=== PATIENT | male | born 1970 | race Caucasian/White ===

== ENCOUNTER → 2018-04-22 | Outpatient (CLI) | payer BC ==
--- NOTE | 2018-04-22 10:30 | NM ---
EXAMINATION TYPE: NM stress cardiolite complete DATE OF EXAM: 04/22/2018 COMPARISON: NONE HISTORY: Chest pain TECHNIQUE: After the intravenous administration of 10.38 mCi Tc 99m Sestamibi - Rest images obtained 60 minutes post injection. The patient exercised using a AIDEN protocol and 1 minute prior to peak exercise was injected with 25.8 mCi Tc 99m Sestamibi - Stress images obtained 15 minutes post inject ion. FINDINGS: Targeted heart rate was achieved during performance of the study. Review of stress and rest SPECT bernardo ges demonstrates decreased radio pharmaceutical along the inferolateral left ventricle on stress as c ompared to rest images. Gated analysis shows normal wall motion with an estimated left ventricular ej ection fraction of 55 %. IMPRESSION: Stress-induced left ventricular myocardial ischemia. A Yellow level critical message alert has been initiated for Rigoberto Sheppard MD via the [employer] Critical Results System on 04/22/2018 10:28 AM. This message alert has been sent to Rigoberto Sheppard MD via the preferences provided by the clinician for the receipt of Radiology Critical Findings. Message ID [id number].
--- NOTE | 2018-04-22 13:28 | EST ---
EXERCISE STRESS DATE OF SERVICE: 04/22/2018 AGE: 47 SEX: Male HT: 6'0" WT: 240 pounds PROTOCOL: Cardiolite Dustin STAGE: III DURATION OF EXERCISE: 9 minutes HEART RATE REST: 79 BLOOD PRESSURE REST: 100/68 MAXIMUM HEART RATE ACHIEVED: 152 MAXIMUM BLOOD PRESSURE: 138/70 85% MPHR: 149 100% MPHR: 175 METS: 10.3 INDICATIONS: Chest pain. CLINICAL INFORMATION: A stress Cardiolite study was performed. Patient was exercised for a total period of 9 minutes. Peak heart rate of 152 was achieved. Maximum blood pressure of 138/70 mmHg was noted. Resting EKG shows normal sinus rhythm with normal TN interval and QRS duration and normal ST-T waves. No ST- segment depression suggestive of ischemia was noted. The patient did not complain of any chest pain during the test. FINAL IMPRESSION: This exercise EKG is not suggestive of ischemia. Patient's exercise tolerance is normal. The results of the nuclear study will follow. VELIA / AISHAN: [id number] /
== END | disposition home or self-care (01) ==
LOC: RADNMMAIN 07:57
PROVIDERS: ATTEND Internal Medicine
DX: I25.9 Chronic ischemic heart disease, unspecified (principal)
CPT/HCPCS: 93017; 78452; A9500

== ENCOUNTER 2018-04-23 23:52 | Inpatient (IN) | payer BC ==
[2018-04-24] MEDS ORDERED: SODIUM CHLORIDE 0.9% 1,000 ML IV STA (00:07)
--- NOTE | 2018-04-24 00:11 | ED ---
Chest Pain HPI - General Chief Complaint: Chest Pain Stated Complaint: Chest,Neck Pain Time Seen by Provider: 04/24/18 00:07 Source: patient Mode of arrival: ambulatory Limitations: no limitations - History of Present Illness Initial Comments: Abhishek Lindsey is an obese 47-year-old male who presents the emergency department today for evaluation of left-sided chest pain with pain radiating to his left neck and left shoulder. Patient reports that last week he had an episode of severe left-sided chest pain with radiation to his jaw and shoulder, he did not seek medical care at that time. He did follow up with his primary care physician Dr. Sheppard who ordered an outpatient stress test. Patient did undergo the stress test on April 22 and was noted to have failed the stress test and there is noted to be signs of exercise-induced ischemia. Patient was advised that he will need follow-up with cardiology. Patient reports that on the evening of April was laying in bed watching television when he again developed pressure-like left-sided chest pain with radiation into his jaw and shoulder. Pain was not associated with diaphoresis lightheadedness or shortness of breath. Patient took full dose aspirin and came to the ER for reevaluation. Patient has no personal history of cardiac disease, hypertension, hyperlipidemia or diabetes. He isn't every day smoker. He does have a significant family history of early cardiac disease including his mother having a IL at the age of 42 and his father developing heart failure later in life. - Related Data Allergies Allergy/AdvReac Type Severity Reaction Status Date / Time No Known Allergies Allergy Verified 04/23/18 23:57 Review of Systems ROS Statement: Those systems with pertinent positive or pertinent negative responses have been documented in the HPI. ROS Other: All systems not noted in ROS Statement are negative. EKG Findings - EKG Comments: EKG Findings:: EKG obtained at 12:10 AM, rate is 86 rhythm is sinus there is a normal axis, there are normal intervals, AK 158, QRS 92, QTc is 409. There are no acute ST elevations or depressions is no evidence of acute ischemia or infarction. V1 does have an RSR' pattern which is unchanged from EKG obtained during stress echo on 04/22 Past Medical History Past Medical History: Chest Pain / Angina History of Any Multi-Drug Resistant Organisms: None Reported Past Surgical History: Orthopedic Surgery, Tonsillectomy Additional Past Surgical History / Comment(s): GALLBLADDER Past Psychological History: No Psychological Hx Reported Smoking Status: Current every day smoker Past Alcohol Use History: None Reported Past Drug Use History: None Reported General Exam - General Exam Comments Initial Comments: Physical Exam GENERAL: Patient is well-developed and well-nourished. Patient is nontoxic and well-hydrated and is in no distress. HENT: Normocephalic, Atraumatic. EYES: PERRL, EOMI PULMONARY: Unlabored respirations. No audible rales rhonchi or wheezing was noted. CARDIOVASCULAR: There is a regular rate and rhythm without any murmurs gallops or rubs. ABDOMEN: Soft and nontender with normal bowel sounds. SKIN: Skin is clear with no lesions or rashes and otherwise unremarkable. : Deferred NEUROLOGIC: Patient is alert and oriented x3. Moving all extremities spontaneously MUSCULOSKELETAL: Normal extremities with adequate strength and full range of motion. No lower extremity swelling or edema. No calf tenderness. PSYCHIATRIC: Normal psychiatric evaluation. Limitations: no limitations Limitations: no limitations Course Vital Signs 04/23/18 04/24/18 23:54 01:00 Temperature 99.2 F 98.0 F Pulse Rate 96 75 Respiratory 16 16 Rate Blood Pressure 122/58 103/65 O2 Sat by Pulse 96 98 Oximetry Chest Pain [facility] Patient was seen and evaluated, vital signs were reviewed, nursing notes reviewed, previous medical record and stress test from April 22 were reviewed Patient failed a stress test is now presenting with left-sided chest pain with radiation of the jaw and shoulder. This is very concerning for ischemic chest pain. Cardiac workup was ordered. Low-dose heparin was ordered for very high risk chest pain. EKG reviewed, no ischemic changes Labs with no significant abnormalities, d-dimer and BNP were negative Chest x-ray no acute abnormalities I do feel patient is very high risk for cardiac etiology of chest pain and does warrant further evaluation by cardiology. Admission orders were placed, consult to cardiology, nothing by mouth diet and echocardiogram ordered. Disposition Clinical Impression: Chest pain Disposition: ADMITTED IP TO THIS HOSP Condition: Stable Referrals: Rigoberto Sheppard MD [Primary Care Provider] - 1-2 days
[2018-04-24] MEDS ORDERED: HEPARIN SOD,PORK IN 0.45% NACL 25,000 UNIT in 0.45% NACL 1 250ML.BAG IV SCH (00:15)
[2018-04-24] MEDS ORDERED: HEPARIN SODIUM,PORCINE 5,000 UNIT/ML 1 ML VIAL IV ONE (00:15)
[2018-04-24] MEDS ORDERED: HEPARIN SODIUM,PORCINE 5,000 UNIT/ML 1 ML VIAL IV PRN (00:15)
[2018-04-24 00:42] LABS: Basophils # (A) 0.1 k/uL (0-0.2); Basophils % (A) 1 %; Eosinophils # (A) 0.4 k/uL (0-0.7); Eosinophils % (A) 6 %; HCT 44.2 % (39.0-53.0); HGB 14.3 gm/dL (13.0-17.5); Lymphocytes # (A) 2.1 k/uL (1.0-4.8); Lymphocytes % (A) 31 %; MCH 29.5 pg (25.0-35.0); MCHC 32.3 g/dL (31.0-37.0); MCV 91.1 fL (80.0-100.0); Mean Platelet Volume 6.9; Monocytes # (A) 0.5 k/uL (0-1.0); Monocytes % (A) 7 %; Neutrophils # (A) 3.5 k/uL (1.3-7.7); Neutrophils % (A) 51 %; Platelet Count 229 k/uL (150-450); RBC 4.85 m/uL (4.30-5.90); RDW 12.8 % (11.5-15.5); WBC 6.8 k/uL (3.8-10.6)
[2018-04-24 00:54] LABS: ALT 38 U/L (21-72); AST 37 U/L (17-59); Albumin 3.9 g/dL (3.5-5.0); Alkaline Phosphatase 50 U/L (38-126); Anion Gap 5 mmol/L; Blood Urea Nitrogen 17 mg/dL (9-20); Calcium 9.1 mg/dL (8.4-10.2); Carbon Dioxide 26 mmol/L (22-30); Chloride 109 mmol/L (98-107); Glucose 106 mg/dL (74-99); INR 0.9 (<1.2); Magnesium 2.1 mg/dL (1.6-2.3); Partial Thromboplastin Time 24.2 sec (22.0-30.0); Potassium 4.3 mmol/L (3.5-5.1); Prothrombin Time 10.1 sec (9.0-12.0); Sodium 140 mmol/L (137-145); Total Bilirubin 0.6 mg/dL (0.2-1.3); Total Protein 6.5 g/dL (6.3-8.2)
[2018-04-24] MEDS: ASPIRIN 81 MG PO STA ×2 (00:59→08:56)
[2018-04-24 01:09] LABS: Creatine Kinase 129 U/L (55-170)
--- NOTE | 2018-04-24 01:18 | XR ---
EXAM: XR Chest, 2 Views CLINICAL HISTORY: ITS.REASON XR Reason: Chest Pain TECHNIQUE: Frontal and lateral views of the chest. COMPARISON: No relevant prior studies available. FINDINGS: Lungs: Unremarkable. The lungs are clear. Pleural space: Unremarkable. No pneumothorax. Heart: Unremarkable. No cardiomegaly. Mediastinum: Unremarkable. Bones/joints: Unremarkable. IMPRESSION: Normal chest x-rays.
[2018-04-24 01:22] LABS: Creatine Kinase MB <0.2 ng/mL (0.0-2.4); Troponin I <0.012 ng/mL (0.000-0.034)
[2018-04-24] MEDS ORDERED: MORPHINE SULFATE 4 MG/ML SYRINGE IV PRN (01:25)
[2018-04-24] MEDS: NITROGLYCERIN OINT 1 INCH/GM PACKET TOPICAL SCH ×4 (03:42→22:53)
[2018-04-24] MEDS ORDERED: ALPRAZolam 0.5 MG TAB PO PRN (07:48)
[2018-04-24] MEDS ORDERED: SODIUM CHLORIDE 0.9% 1,000 ML in EMPTY BAG 1 BAG IV ONE (07:48)
[2018-04-24] MEDS ORDERED: NITROGLYCERIN SL TABS 0.4 MG TAB SUBLINGUAL PRN ×2 (07:48→12:50)
[2018-04-24] MEDS ORDERED: ATORVASTATIN 80 MG TAB PO STA (07:48)
[2018-04-24] MEDS ORDERED: ALPRAZolam 0.25 MG TAB PO PRN (07:48)
[2018-04-24 08:32] LABS: Creatine Kinase 108 U/L (55-170)
[2018-04-24 08:44] LABS: Creatine Kinase MB <0.2 ng/mL (0.0-2.4); Troponin I <0.012 ng/mL (0.000-0.034)
[2018-04-24 09:13] LABS: ALT 35 U/L (21-72); AST 38 U/L (17-59); Albumin 3.5 g/dL (3.5-5.0); Alkaline Phosphatase 62 U/L (38-126); Anion Gap 7 mmol/L; Blood Urea Nitrogen 15 mg/dL (9-20); Calcium 8.8 mg/dL (8.4-10.2); Carbon Dioxide 19 mmol/L (22-30); Chloride 115 mmol/L (98-107); Glucose 89 mg/dL (74-99); Potassium 4.5 mmol/L (3.5-5.1); Sodium 141 mmol/L (137-145); Total Bilirubin 0.7 mg/dL (0.2-1.3)
--- NOTE | 2018-04-24 09:23 | P.HPIM ---
History of Present Illness H&P Date: 04/24/18 This is a 47-year-old male who presented to the hospital with complaints of chest pain. Patient has been experiencing intermittent chest pain the past couple months. Patient presented to his PCP. At that time a stress test was completed on April 22 in which she failed. Patient was set up to follow-up cardiology services. Patient stated that he started to experience pain that radiated to his left neck and left shoulder. Patient is a current every day smoker. Patient also states his mother had open heart surgery at 42. Patient also reports father had significant cardiac history. Patient does have a past medical history for nicotine dependence and cholectomy. Chest x-ray completed in ER showing normal chest x-ray. Cardiology services are consulted. Planning for heart cath today. 2-D echo has been ordered. At this time patient denies any chest pain or shortness of breath. Patient denies nausea vomiting or diarrhea. Patient denies any urinary burning or frequency. Review of Systems Please refer to HPI otherwise unremarkable. Past Medical History Past Medical History: Chest Pain / Angina History of Any Multi-Drug Resistant Organisms: None Reported Past Surgical History: Orthopedic Surgery, Tonsillectomy Additional Past Surgical History / Comment(s): GALLBLADDER, broke his R foot Smoking Status: Current every day smoker Medications and Allergies Allergies Allergy/AdvReac Type Severity Reaction Status Date / Time No Known Allergies Allergy Verified 04/23/18 23:57 Physical Exam Vitals: Vital Signs Temp Pulse Pulse Pulse Resp BP BP 04/24/18 07:21 97.9 F 74 18 97/59 04/24/18 03:54 98.4 F 76 15 101/66 04/24/18 03:31 16 04/24/18 01:00 98.0 F 75 16 103/65 04/23/18 23:54 99.2 F 96 16 122/58 Pulse Ox 04/24/18 07:21 95 04/24/18 03:54 98 04/24/18 03:31 04/24/18 01:00 98 04/23/18 23:54 96 Intake and Output 04/23/18 04/24/18 04/24/18 22:59 06:59 14:59 Other: # Voids 1 Weight 109.769 kg Head normocephalic Neck supple Lungs clear to auscultation bilaterally no wheezing or crackles Heart regular rate and rhythm S1-S2, no rub or gallop Abdomen is soft nontender nondistended positive bowel sounds no hepatosplenomegaly Extremities no edema Neuro alert and orientated to 3 Results CBC & Chem 7: 04/24/18 00:30 04/24/18 00:30 Labs: Abnormal Lab Results - Last 24 Hours (Table) 04/24/18 04/24/18 Range/Units 00:30 06:59 APTT 32.4 H (22.0-30.0) sec Chloride 109 H (98-107) mmol/L Glucose 106 H (74-99) mg/dL Thrombosis Risk Factor Assmnt - Choose All That Apply Each Factor Represents 1 point: Age 41-60 years, Obesity (BMI >25) Thrombosis Risk Factor Assessment Total Risk Factor Score: 2 Thrombosis Risk Factor Assessment Level: Low Risk Assessment and Plan Assessment: 1. Chest pain. Troponin negative. EKG showing normal sinus rhythm. Patient recently underwent stress test on April 22 in which he failed. Cardiology consult placed. Planning heart cath today. 2-D echo ordered 2. Nicotine dependence. Nicotine patch has been ordered. Patient educated greater than 3 minutes on smoking cessation. 3. History of cholecystectomy Time with Patient: Greater than 30 (Greater than 60% of the total time spent in counseling and coordination of care. I performed an examination of the patient and discussed their management with the Nurse Practitioner. I have reviewed the Nurse Practitioner's notes and agree with the documented findings and plan of care)
[2018-04-24 09:30] LABS: Cholesterol 224 mg/dL (<200); HDL Cholesterol 41 mg/dL (40-60); LDL Cholesterol,Calculated 142 mg/dL (0-99); Triglycerides 207 mg/dL (<150)
[2018-04-24] MEDS ORDERED: LIDOCAINE 1% INJ 10MG/ML (20 ML MDV) ONE (10:18)
[2018-04-24] MEDS ORDERED: IV FLUID CONTINUATION 1,000 ML IV ONE (10:28)
--- NOTE | 2018-04-24 10:41 | P.CRDCN ---
History of Present Illness History of present illness: This is a pleasant 47-year-old male past medical history significant for chronic nicotine dependence. He denies history of hypertension, dyslipidemia, coronary artery disease or diabetes mellitus. He does have significant family history for premature coronary artery disease with his mother and father. We have been asked to see him in consultation for symptoms of chest discomfort. He states this first started approximately one month ago where he felt a pain in the left neck, jaw and left shoulder described as a squeezing sensation. This occurred while he was lying in bed in and lasted for approximately 20 minutes. It went away on its own. He saw his primary care physician subsequently thereafter and had a stress test ordered which was performed April 22 as an outpatient. Stress test revealed inferior lateral wall reversibility. Again last night while lying in bed he felt similar type pain in the left neck, left jaw left ear and this time radiated down the left arm and mildly into the left precordial region. This persisted for approximately 20-30 minutes and subsided before he arrived to the hospital. EKG on arrival reveals sinus mechanism. Cardiac enzymes negative 2, creatinine 0.9. He takes an 81 mg aspirin daily. At the time of my exam: CONSTITUTIONAL: Denies fever. Denies chills. EYES: Denies blurred vision. Denies vision changes. Denies eye pain. EARS, NOSE, MOUTH & THROAT: Denies headache. Denies sore throat. Denies ear pain. CARDIOVASCULAR: Denies chest pain. Denies shortness of breath. Denies orthopnea. Denies PND. Denies palpitations. RESPIRATORY: Denies cough. GASTROINTESTINAL: Denies abdominal pain. Denies diarrhea. Denies constipation. Denies nausea. Denies vomiting. MUSCULOSKELETAL: Denies myalgias. INTEGUMENTARY: Denies pruitis. Denies rash. NEUROLOGIC: Denies numbness. Denies tingling. Denies weakness. PSYCHIATRIC: Denies anxiety. Denies depression. ENDOCRINE: Denies fatigue. Denies weight change. Denies polydipsia. Denies polyurina. GENITOURINARY: Denies burning, hematuria or urgency with micturation. HEMATOLOGIC: Denies history of anemia. Denies bleeding. Blood pressure 97/59 heart rate 79 afebrile maintaining oxygen saturation on room air GENERAL: This is a 47-year-old male in no apparent distress at the time of my examination. HEENT: Head is atraumatic, normocephalic. Pupils are equal, round. Sclerae anicteric. Conjunctivae are clear. Mucous membranes of the mouth are moist. Neck is supple. There is no jugular venous distention. No carotid bruit is heard. LUNGS: Clear to auscultation no wheezes, rales or rhonchi. No chest wall tenderness is noted on palpation or with deep breathing. HEART: Regular rate and rhythm without murmurs, rubs or gallops. S1 and S2 heard. ABDOMEN: Soft, nontender. Bowel sounds are heard. No organomegaly noted. EXTREMITIES: No evidence of peripheral edema and no calf tenderness noted. VASCULAR: Radial and dorsalis pedis pulses palpated, no evidence of clubbing. NEUROLOGIC: Patient is awake, alert and oriented x3. ASSESSMENT Unstable angina Chronic nicotine dependence Significant family history of premature coronary artery disease PLAN An acute coronary event has been ruled out, however his symptoms are concerning for angina and he also had a positive stress test 04/22/2017 as an outpatient. We recommend proceeding with cardiac catheterization. I have discussed the risks , benefits and alternative therapies for the above-mentioned procedure and for both sedation/analgesia as well as necessary blood product administration, if indicated, as they pertain to this patient. The patient and his have indicated understanding and acceptance of the risks and procedures discussed. Questions have been answered appropriately and he is agreeable to move forward with above stated procedure. Boarded for [address] Butcher. Check lipid panel. Obtain 2D echocardiogram and doppler study to assess cardiac structure and function. Smoking cessation recommended. Further recommendations to follow based on clinical course. Thank you kindly for this consultation. Nurse Practitioner note has been reviewed, I agree with a documented findings and plan of care. Patient was seen and examined. Past Medical History Past Medical History: Chest Pain / Angina History of Any Multi-Drug Resistant Organisms: None Reported Past Surgical History: Orthopedic Surgery, Tonsillectomy Additional Past Surgical History / Comment(s): GALLBLADDER, broke his R foot Smoking Status: Current every day smoker Medications and Allergies Home Medications Medication Instructions Recorded Confirmed Type Aspirin 325 mg PO ONCE 04/24/18 04/24/18 History Aspirin [[place] Aspirin EC] 81 mg PO DAILY 04/24/18 04/24/18 History Allergies Allergy/AdvReac Type Severity Reaction Status Date / Time No Known Allergies Allergy Verified 04/24/18 10:06 Physical Exam Vitals: Vital Signs Temp Pulse Pulse Pulse Resp BP BP 04/24/18 07:21 97.9 F 74 18 97/59 04/24/18 03:54 98.4 F 76 15 101/66 04/24/18 03:31 16 04/24/18 01:00 98.0 F 75 16 103/65 04/23/18 23:54 99.2 F 96 16 122/58 Pulse Ox 04/24/18 07:21 95 04/24/18 03:54 98 04/24/18 03:31 04/24/18 01:00 98 04/23/18 23:54 96 Intake and Output 04/23/18 04/24/18 04/24/18 22:59 06:59 14:59 Other: # Voids 1 Weight 109.769 kg Results 04/24/18 00:30 04/24/18 06:59 Cardiac Enzymes 04/24/18 04/24/18 Range/Units 00:30 00:30 AST 37 (17-59) U/L CK-MB (CK-2) <0.2 (0.0-2.4) ng/mL Troponin I <0.012 (0.000-0.034) ng/mL Coagulation 04/24/18 Range/Units 00:30 PT 10.1 (9.0-12.0) sec APTT 24.2 (22.0-30.0) sec CBC 04/24/18 Range/Units 00:30 WBC 6.8 (3.8-10.6) k/uL RBC 4.85 (4.30-5.90) m/uL Hgb 14.3 (13.0-17.5) gm/dL Hct 44.2 (39.0-53.0) % Plt Count 229 (150-450) k/uL Comprehensive Metabolic Panel 04/24/18 Range/Units 00:30 Sodium 140 (137-145) mmol/L Potassium 4.3 (3.5-5.1) mmol/L Chloride 109 H (98-107) mmol/L Carbon Dioxide 26 (22-30) mmol/L BUN 17 (9-20) mg/dL Creatinine 0.92 (0.66-1.25) mg/dL Glucose 106 H (74-99) mg/dL Calcium 9.1 (8.4-10.2) mg/dL AST 37 (17-59) U/L ALT 38 (21-72) U/L Alkaline Phosphatase 50 (38-126) U/L Total Protein 6.5 (6.3-8.2) g/dL Albumin 3.9 (3.5-5.0) g/dL Current Medications Generic Name Dose Route Start Last Admin Trade Name Freq PRN Reason Stop Dose Admin Aspirin 325 mg 04/25/18 09:00 Aspirin PO DAILY ESTEE Heparin Sodium (Porcine) 0 unit 04/24/18 00:15 Heparin IV PER PROTOCOL PRN Low PTT Protocol Sodium Chloride 1,000 mls @ 75 mls/hr 04/24/18 00:07 04/24/18 00:50 Saline 0.9% IV 04/24/18 13:26 75 mls/hr .[id number] STA Administration Heparin Sodium/Sodium Chloride 250 mls @ 10 mls/hr 04/24/18 00:15 04/24/18 00 :55 25,000 unit/ Sodium Chloride IV 1,000 units/hr .Q24H ESTEE 10 mls/hr Administration Protocol Morphine Sulfate 4 mg 04/24/18 01:25 Morphine Sulfate (Inj) IV Q4HR PRN Severe Pain Nitroglycerin 1 inch 04/24/18 01:30 04/24/18 03:42 Nitro-Bid Oint TOPICAL Not Given Q6HR ESTEE Intake and Output 04/23/18 04/24/18 04/24/18 22:59 06:59 14:59 Other: # Voids 1 Weight 109.769 kg 04/24/18 00:30 04/24/18 00:30
--- NOTE | 2018-04-24 10:48 | ECHOF ---
Referral Reason:chest pain, failed stress test MEASUREMENTS -------- HEIGHT: 182.9 cm WEIGHT: 109.8 kg BP: RVIDd: 3.2 cm (< 3.3) IVSd: 1.1 cm (0.6 - 1.1) LVIDd: 4.0 cm (3.9 - 5.3) LVPWd: 1.2 cm (0.6 - 1.1) IVSs: 1.2 cm LVIDs: 3.4 cm LVPWs: 1.6 cm LA Diam: 3.0 cm (2.7 - 3.8) Ao Diam: 3.2 cm (2.0 - 3.7) AV Cusp: 2.2 cm (1.5 - 2.6) LA Diam: 3.5 cm (2.7 - 3.8) MV EXCURSION: 18.742 mm (> 18.000) MV EF SLOPE: 112 mm/s (70 - 150) EPSS: 0.7 cm MV E Palmer: 0.64 m/s MV DecT: 196 ms MV A Palmer: 0.56 m/s MV E/A Ratio: 1.15 RAP: 5.00 mmHg RVSP: 16.15 mmHg FINDINGS -------- Sinus rhythm. This was a technically adequate study. LV size, wall thickness and systolic function are normal, with an EF greater than 55%. The left georgie tricular size is normal. The right ventricle is normal in size. The left atrial size is normal. The right atrial size is normal. The aortic valve is trileaflet, and appears structurally normal. No aortic stenosis or regurgitation. Mild mitral annular calcification present. Mild mitral regurgitation is present. Mild tricuspid regurgitation present. There is no evidence of pulmonary hypertension. The right v entricular systolic pressure, as measured by Doppler, is 16.15mmHg. There is no pulmonic regurgitation present. The aortic root size is normal. Echo free space represents a pericardial fat pad. CONCLUSIONS -------- 1. LV size, wall thickness and systolic function are normal, with an EF greater than 55%. 2. The left ventricular size is normal. 3. The right ventricle is normal in size. 4. The left atrial size is normal. 5. The right atrial size is normal. 6. The aortic valve is trileaflet, and appears structurally normal. No aortic stenosis or regurgitati on. 7. Mild mitral annular calcification present. 8. Mild mitral regurgitation is present. 9. Mild tricuspid regurgitation present. 10. There is no evidence of pulmonary hypertension. 11. The right ventricular systolic pressure, as measured by Doppler, is 16.15mmHg. 12. There is no pulmonic regurgitation present. 13. The aortic root size is normal. 14. Echo free space represents a pericardial fat pad. VISUALLY IMPAIRED TEACHER: Jessica Bliss RDCS
[2018-04-24] MEDS ORDERED: MIDAZOLAM 2 MG/2 ML VIAL IVP ONE (10:56)
[2018-04-24] MEDS ORDERED: LIDOCAINE 1% INJ 10MG/ML (20 ML MDV) SQ ONE (10:57)
[2018-04-24] MEDS ORDERED: fentaNYL (PF) 50 MCG/ML 2 ML AMP IVP ONE (10:59)
--- NOTE | 2018-04-24 11:33 | CC ---
CARDIAC CATHETERIZATION REPORT INDICATION: Unstable angina. PROCEDURE NOTE: After obtaining informed consent, left heart catheterization and coronary angiogram were performed via the right femoral artery using standard Kendra catheters. Patient tolerated the procedure well without any obvious immediate complications. Patient received moderate conscious sedation. Total sedation time was 15 minutes. FINDINGS: Left ventricular end-diastolic pressure is 8-15 mm. There is no significant gradient across aortic valve. LEFT VENTRICULOGRAM: Left ventriculogram is not performed. ANGIOGRAPHIC DATA: LEFT MAIN CORONARY ARTERY: Left main coronary artery is a normal-sized vessel and is free of stenosis. Divides into left anterior descending coronary artery and circumflex coronary artery. LAD shows a mild atherosclerotic plaque in its proximal part. LAD and its branches are free of significant stenosis. Circumflex coronary artery is a nondominant vessel and is free of significant disease. There is mild calcification of the left coronary system. Right coronary artery is a large dominant vessel that shows a focal 95% stenosis in the mid RCA. 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 PLAN: Patient will undergo angioplasty with stent placement of the same. MMODL / IJN: [id number] /
--- NOTE | 2018-04-24 11:36 | LTR ---
DATE OF SERVICE: 04/24/2018 RE: Bear Lindsey Dear Dr. Sheppard; I performed cardiac catheterization on Bear Lindsey, a detailed catheterization note is enclosed for your records. In brief, cardiac catheterization reveals a 95% focal stenosis involving mid RCA and he will undergo angioplasty with stent placement of the same. Sincerely, MD VELIA Vaughn / AISHAN: [id number] /
[2018-04-24] MEDS ORDERED: PRASUGREL 10 MG TAB PO ONE (11:54)
[2018-04-24] MEDS ORDERED: BIVALIRUDIN BOLUS 250 MG/50 ML IV ONE (12:25)
[2018-04-24] MEDS ORDERED: BIVALIRUDIN 250 MG in SODIUM CHLORIDE 0.9% 50 ML IV ONE (12:26)
[2018-04-24] MEDS ORDERED: IOPAMIDOL-370 125ML BTL INJ ONE (12:29)
[2018-04-24] MEDS ORDERED: IOPAMIDOL-370 100ML BTL INJ ONE (12:46)
[2018-04-24] MEDS ORDERED: ZOLPIDEM 5 MG TAB PO PRN (12:50)
[2018-04-24] MEDS ORDERED: MAG HYDROX/AL HYDROX/SIMETH 30 ML CUP PO PRN (12:50)
[2018-04-24] MEDS ORDERED: RX INFO: IV CONTRAST WAS GIVEN 1 EACH MISC MISCELLANE PRN (12:50)
[2018-04-24] MEDS ORDERED: ATROPINE SULFATE 0.1 MG/ML 10ML SYRINGE IV PRN (12:50)
[2018-04-24] MEDS ORDERED: SODIUM CHLORIDE 0.9% 1,000 ML IV SCH (13:00)
--- NOTE | 2018-04-24 13:20 | PTCA ---
PERCUTANEOUSTRANS CORORONARY ANGIOGRAPHY Mr. Lindsey is a 47-year-old male with a family history of heart disease and chronic tobacco use who presented with symptoms consistent with angina pectoris. He was evaluated by Dr. Butcher and subsequently underwent cardiac catheterization that revealed a significant stenosis involving the mid right coronary artery. In view of that, recommendation was made regarding angioplasty and stenting. The procedure as well as the risks and the complications were discussed with the patient who is in full understanding and agreement. PROCEDURE: A 6-Norwegian FR4 guiding catheter was introduced into the system. After cannulating the right coronary ostium, a 0.014 balanced medium weight J-wire was advanced across the lesion, positioned distally then a 3.0 x 12 mm Trek balloon was advanced and one inflation at 10 atmospheres was done. Following that, the balloon was removed and a 4.0 x 23 mm Xience Arcelia stent was deployed, postdilated at 18 atmospheres. Following that, the balloon was removed and a 5.0 x 12 mm NC Trek balloon was advanced and 2 inflations at 14 atmospheres was done. After the last inflation, after appropriate wait the balloon and the guidewire were withdrawn back in the guiding catheter. Images were obtained, repeated. Those images reveal stable successful stenting. At that point, the guiding catheter, the balloon and the guidewire were removed. The sheath was removed. Hemostasis was obtained with deployment of a Angio-Seal. There was no immediate complication. Patient was returned to his room in stable condition. Of note, the patient had chest discomfort and EKG changes with the inflation that resolved at the end of the procedure. He received Angiomax per protocol as well as oral loading dose of Effient. RESULTS: Successful stenting of the mid right coronary artery with reduction of stenosis from 95% to 0%. RECOMMENDATION: The patient will be continued on aspirin, Effient and statin. The importance of dual antiplatelet treatment was discussed with the patient and his family who are in full understanding and agreement. Duration of procedure is 20 minutes. MMODL / IJN: [id number] /
--- NOTE | 2018-04-24 13:23 | LTR ---
April 24, 2018 Re: Bear Gamblen Dear Dr. Sheppard: I had the opportunity to perform coronary angioplasty and stenting on Mr. Lindsey at [facility] on the 24 of April and a full copy of the procedure note will be forwarded to you. In brief, he underwent successful stenting of his mid right coronary artery. At this time, I will continue aggressive course risk modification with dual antiplatelet treatment. Thank you again for allowing me the opportunity to participate in his care. Please feel free to call for any questions. Sincerely yours, Ramses Bland MD MMBOAZL / IJN: [id number] /
[2018-04-24 14:28] VITALS: BMI 32.8
[2018-04-24 14:48] LABS: Creatine Kinase 104 U/L (55-170)
[2018-04-24 15:00] LABS: Creatine Kinase MB <0.2 ng/mL (0.0-2.4); Troponin I <0.012 ng/mL (0.000-0.034)
[2018-04-24] MEDS: NICOTINE 14MG/24HR PATCH TRANSDERM SCH (19:42)
[2018-04-24] MEDS ORDERED: ATORVASTATIN 80 MG TAB PO SCH (21:00)
[2018-04-24 23:07] VITALS: RESP 18
[2018-04-25] MEDS: ACETAMINOPHEN TAB 325 MG TAB PO PRN ×2 (01:38→09:22)
[2018-04-25] MEDS: NITROGLYCERIN OINT 1 INCH/GM PACKET TOPICAL SCH (03:30)
[2018-04-25 07:07] LABS: Anion Gap 3 mmol/L; Blood Urea Nitrogen 12 mg/dL (9-20); Calcium 8.6 mg/dL (8.4-10.2); Carbon Dioxide 23 mmol/L (22-30); Chloride 115 mmol/L (98-107); Glucose 90 mg/dL (74-99); Potassium 4.2 mmol/L (3.5-5.1); Sodium 141 mmol/L (137-145)
[2018-04-25 08:39] VITALS: TEMP 98
[2018-04-25 08:45] LABS: Basophils % (A) 1 %; Eosinophils # (A) 0.3 k/uL (0-0.7); Eosinophils % (A) 4 %; HCT 39.4 % (39.0-53.0); HGB 12.7 gm/dL (13.0-17.5); Lymphocytes # (A) 1.7 k/uL (1.0-4.8); Lymphocytes % (A) 23 %; MCH 29.7 pg (25.0-35.0); MCHC 32.2 g/dL (31.0-37.0); MCV 92.4 fL (80.0-100.0); Mean Platelet Volume 7.1; Monocytes # (A) 0.4 k/uL (0-1.0); Monocytes % (A) 6 %; Neutrophils # (A) 4.7 k/uL (1.3-7.7); Neutrophils % (A) 63 %; Platelet Count 215 k/uL (150-450); RBC 4.26 m/uL (4.30-5.90); RDW 12.9 % (11.5-15.5); WBC 7.4 k/uL (3.8-10.6)
[2018-04-25] MEDS ORDERED: ASPIRIN 81 MG PO SCH (09:00)
[2018-04-25] MEDS ORDERED: PRASUGREL 10 MG TAB PO SCH (09:00)
[2018-04-25] MEDS ORDERED: ASPIRIN 325 MG TAB PO SCH (09:00)
[2018-04-25] MEDS ORDERED: NICOTINE 14MG/24HR PATCH TRANSDERM SCH (09:00)
[2018-04-25] MEDS: NICOTINE 14MG/24HR PATCH TRANSDERM SCH (09:22)
--- NOTE | 2018-04-25 10:13 | PN ---
PROGRESS NOTE Mr. Lindsey is a 47-year-old male who presented with unstable angina, underwent cardiac catheterization, was found to have critical stenosis involving the mid right coronary artery, underwent successful stenting of that vessel. He is doing well this morning, denying any chest pain, his breathing has been stable. He denies any dizziness or palpitation. He continues to be on aspirin once a day, Effient 10 mg daily, Lipitor 80 mg daily. PHYSICAL EXAMINATION: Blood pressure 105/50 with a heart rate in the 70s. LUNGS: Clear. HEART: Regular rate and rhythm, S1, S2. No S3. No rub. ABDOMEN: Soft, nontender. A right groin hematoma. LAB DATA: Revealed BUN and creatinine 12 and 0.83. His LDL is 142. IMPRESSION: 1. Status post stenting of the right coronary artery with unstable angina. 2. Hyperlipidemia. 3. Prior history of smoking. RECOMMENDATION: Patient should be able to be discharged home today and followed as an outpatient. MMBOAZL / AISHAN: [id number] /
[2018-04-25 12:32] VITALS: BP 117/67; PULSE 82
--- NOTE | 2018-04-25 13:09 | P.DS ---
Providers Date of admission: 04/24/18 13:11 Expected date of discharge: 04/25/18 Attending physician: Rigoberto Sheppard Consults: 04/24/18 01:26 Consult Physician Urgent Consulting Provider: Ammon Lafleur Consult Reason/Comments: high risk chest pain, failed stress 2/5 Do you want consulting provider notified?: Yes, Notify in am 04/24/18 12:50 Consult Physician Routine Consulting Provider: Ammon Lafleur Consult Reason/Comments: Post Interventional patient Do you want consulting provider notified?: Already Contacted Primary care physician: [facility] Course: Discharge diagnosis 1. Chest pain. Troponin negative. EKG showing normal sinus rhythm. Patient recently underwent stress test on April 22 in which he failed. Patient underwent cardiac catheterization yesterday with Dr. Rapp. Patient was found to have 95% blockage of RCA. Patient underwent stent to the RCA. Patient currently maintained on Effient for blood thinner. Patient also on aspirin and Lipitor. Patient has been cleared for discharge from cardiology standpoint. Patient to follow up with cardiology outpatient and PCP. 2. Nicotine dependence. Nicotine patch has been ordered. Patient educated greater than 3 minutes on smoking cessation. Patient will be DC'd on nicotine patch. Begin patient educated on the importance smoking cessation 3. History of cholecystectomy Hospital course This is a 47-year-old male who presented to the hospital with complaints of chest pain. Patient has been experiencing intermittent chest pain the past couple months. Patient presented to his PCP. At that time a stress test was completed on April 22 in which she failed. Patient was set up to follow-up cardiology services. Patient stated that he started to experience pain that radiated to his left neck and left shoulder. Patient is a current every day smoker. Patient also states his mother had open heart surgery at 42. Patient also reports father had significant cardiac history. Patient does have a past medical history for nicotine dependence and cholectomy. Chest x-ray completed in ER showing normal chest x-ray. Cardiology services are consulted. Planning for heart cath today. 2-D echo has been ordered. At this time patient denies any chest pain or shortness of breath. Patient denies nausea vomiting or diarrhea. Patient denies any urinary burning or frequency. On April 22 patient underwent stress test and it was noted that he had signs of exercise-induced ischemia. Patient was set up to see cardiology next week. Patient at that time was told to report to ER if he experienced any episodes of chest pain. 04/26/2018 patient underwent cardiac catheterization yesterday and received a stent to the RCA due to 95% blockage. Patient started on Effient for blood thinner. Patient also be DC'd on statin and aspirin. Patient also highly encouraged to stop smoking. Patient will be prescribed nicotine patch upon discharge. Patient advised to follow-up closely with cardiology services and PCP. At this time patient has been up ambulating without any chest discomfort or shortness of breath. Patient denies nausea vomiting or diarrhea. Patient denies any urinary burning or frequency. Cardiology services prescribing cardiac meds upon discharge. At this time patient denies chest pain or shortness breath. Patient denies nausea vomiting or diarrhea. Patient denies any urinary burning or frequency. I performed an examination of the patient and discussed their management with the Nurse Practitioner. I have reviewed the Nurse Practitioner's notes and agree with the documented findings and plan of care Patient Condition at Discharge: Stable Plan - Discharge Summary New Discharge Prescriptions: New Atorvastatin [Lipitor] 80 mg PO HS #90 tab Prasugrel [Effient] 10 mg PO DAILY #90 tab Nicotine 14Mg/24Hr Patch [Habitrol] 1 patch TRANSDERM DAILY 30 Days #30 patch Continue Aspirin [Schuyler Aspirin EC] 81 mg PO DAILY Discharge Medication List Aspirin [Schuyler Aspirin EC] 81 mg PO DAILY 04/24/18 [History] Atorvastatin [Lipitor] 80 mg PO HS #90 tab 04/25/18 [Rx] Nicotine 14Mg/24Hr Patch [Habitrol] 1 patch TRANSDERM DAILY 30 Days #30 patch [Rx] Prasugrel [Effient] 10 mg PO DAILY #90 tab 04/25/18 [Rx] Follow up Appointment(s)/Referral(s): Rigoberto Sheppard MD [Primary Care Provider] - 05/01/18 3:30 pm () Yared Butcher MD [STAFF PHYSICIAN] - 05/06/18 2:45 pm (Saturday) Patient Instructions/Handouts: *Surgery [facility] - After Heart Catheterization - Plastering Contractor Instructions Discharge Disposition: HOME SELF-CARE
[2018-04-25] MEDS ORDERED: ATORVASTATIN 40 MG TAB PO SCH (21:00)
== END 2018-04-25 14:58 | disposition home or self-care (01) | DRG 247 ==
LOC: EC 23:52 → 1SOBS 04-24 01:30 → 3SCARD 04-24 12:46 → OBSVTOIN 04-24 13:11
PROVIDERS: ADMIT Internal Medicine; ATTEND Internal Medicine
PROC: B2111ZZ Fluoroscopy of Multiple Coronary Arteries using Low Osmolar Contrast (ICD-10-PCS; 2018-04-24)
PROC: 027034Z Dilation of Coronary Artery, One Artery with Drug-eluting Intraluminal Device, Percutaneous Approach (ICD-10-PCS; principal; 2018-04-24 10:45)
PROC: 4A023N7 Measurement of Cardiac Sampling and Pressure, Left Heart, Percutaneous Approach (ICD-10-PCS; 2018-04-24 10:45)
DX: I25.110 Atherosclerotic heart disease of native coronary artery with unstable angina pectoris (principal); F17.200 Nicotine dependence, unspecified, uncomplicated; E78.5 Hyperlipidemia, unspecified; E66.9 Obesity, unspecified; I08.1 Rheumatic disorders of both mitral and tricuspid valves; Z68.32 Body mass index [BMI] 32.0-32.9, adult; Z71.6 Tobacco abuse counseling; Z82.49 Family history of ischemic heart disease and other diseases of the circulatory system; Z79.82 Long term (current) use of aspirin; Z79.899 Other long term (current) drug therapy; Z90.49 Acquired absence of other specified parts of digestive tract
CPT/HCPCS: 36415; 71046; 80048; 80053; 80061; 82550; 82553; 83735; 83880; 84484; 85025; 85610; 85730; 93306; 93458; 96365; 96366; 96376; 99285; C1874

== ENCOUNTER 2018-06-24 21:23 | Inpatient (IN) | payer BC ==
[2018-06-24] MEDS ORDERED: ASPIRIN 81 MG PO STA (22:28)
--- NOTE | 2018-06-24 22:35 | ED ---
General Adult HPI - General Chief complaint: Chest Pain Stated complaint: chest pain Time Seen by Provider: 06/24/18 21:45 Source: patient Mode of arrival: ambulatory Limitations: no limitations - History of Present Illness Initial comments: Dictation was produced using [employer] dictation software. please excuse any grammatical, word or spelling errors. Chief Complaint: 48-year-old male past medical history of coronary artery disease status post stent presents with chest pain. History of Present Illness: Patient is a 48-year-old male presents today with chief complaint of chest pain. He states that he was exerting himself at home when he began having crushing chest pressure to his anterior left chest. He states the pain radiated to his left jaw and left upper extremity. Patient had myocardial infarction in March of this year. States that he had a stent placed. Patient is strong family history of cardiac disease. States his mother had a CABG performed when she was 42 years old. She also of cardiac- related disease. Patient is on multiple cardiac medications. She states the symptoms lasted for several minutes however they slowly subsided while waiting in the emergency department. The ROS documented in this emergency department record has been reviewed and confirmed by me. Those systems with pertinent positive or negative responses have been documented in the HPI. All other systems are other negative and/or noncontributory. PHYSICAL EXAM: General Impression: Alert and oriented x3, not in acute distress HEENT: Normocephalic atraumatic, extra-ocular movements intact, pupils equal and reactive to light bilaterally, mucous membranes moist. Cardiovascular: Heart regular rate and rhythm, S1&S2 audible, no murmurs, rubs or gallops Chest: Lungs clear to auscultation bilaterally, no rhonchi, no wheeze, no rales Abdomen: Bowel sounds present, abdomen soft, non-tender, non-distended, no organomegaly Musculoskeletal: Pulses present and equal in all extremities, no peripheral edema Motor: no focal deficits noted Neurological: CN II-XII grossly intact, no focal motor or sensory deficits noted Skin: Intact with no visualized rashes Psych: Normal affect and mood ED course: 48-year-old male with symptoms concerning for acute coronary syndrome. Vital signs upon arrival are within acceptable limits. EKG does not show any signs to suggest ischemia or infarction at this time. Patient's clinical symptoms are strongly suggestive of acute coronary syndrome. Laboratory evaluation obtained. CBC unremarkable. Metabolic panel is unremarkable. Coag panel is negative. Patient has elevated troponin of 0.044. Patient's clinical presentation is consistent with an STEMI. Repeat EKG was performed showing no signs of ischemia or infarction. Does however have a nonspecific T wave injury inversion in lead 3 which was apparent on initial EKG. Patient started on heparin. He is given aspirin. Patient be admitted to cardiac telemetry with consultation to cardiology. Patient reevaluated bedside. He is symptom-free at the moment. EKG interpretation: Ventricular rate 90, normal sinus rhythm,. Interval 162, QS 94, QTC 428. No TN prolongation, no QTC prolongation, no specific T-wave changes in lead 3.. - Related Data Home Medications Medication Instructions Recorded Confirmed Aspirin [Sartell Aspirin EC] 81 mg PO HS 04/24/18 06/24/18 Ibuprofen [Motrin Ib] 400 mg PO Q6H PRN 06/24/18 06/24/18 Prasugrel [Effient] 10 mg PO HS 06/24/18 06/24/18 Previous Rx's Medication Instructions Recorded Atorvastatin [Lipitor] 80 mg PO HS #90 tab 04/25/18 Nicotine 14Mg/24Hr Patch [Habitrol] 1 patch TRANSDERM DAILY 30 Days 04/25/18 #30 patch Allergies Allergy/AdvReac Type Severity Reaction Status Date / Time No Known Allergies Allergy Verified 06/24/18 22:18 Review of Systems ROS Statement: Those systems with pertinent positive or pertinent negative responses have been documented in the HPI. ROS Other: All systems not noted in ROS Statement are negative. Past Medical History Past Medical History: Chest Pain / Angina History of Any Multi-Drug Resistant Organisms: None Reported Past Surgical History: Orthopedic Surgery, Tonsillectomy Additional Past Surgical History / Comment(s): GALLBLADDER, broke his R foot Past Psychological History: No Psychological Hx Reported Smoking Status: Current every day smoker Past Alcohol Use History: None Reported Past Drug Use History: None Reported General Exam Limitations: no limitations Course Vital Signs 06/24/18 21:31 Temperature 99.7 F H Pulse Rate 98 Respiratory 18 Rate Blood Pressure 135/83 O2 Sat by Pulse 96 Oximetry Medical Decision Making - Lab Data Result diagrams: 06/24/18 22:41 06/24/18 22:41 Lab Results 06/24/18 06/24/18 06/24/18 Range/Units 22:41 22:41 22:41 WBC 7.5 (3.8-10.6) k/uL RBC 4.76 (4.30-5.90) m/uL Hgb 14.2 (13.0-17.5) gm/dL Hct 41.8 (39.0-53.0) % MCV 87.8 (80.0-100.0) fL MCH 29.8 (25.0-35.0) pg MCHC 34.0 (31.0-37.0) g/dL RDW 12.5 (11.5-15.5) % Plt Count 233 (150-450) k/uL Neutrophils % 64 % Lymphocytes % 20 % Monocytes % 7 % Eosinophils % 4 % Basophils % 1 % Neutrophils # 4.9 (1.3-7.7) k/uL Lymphocytes # 1.5 (1.0-4.8) k/uL Monocytes # 0.5 (0-1.0) k/uL Eosinophils # 0.3 (0-0.7) k/uL Basophils # 0.1 (0-0.2) k/uL PT (9.0-12.0) sec INR (<1.2) APTT (22.0-30.0) sec Sodium 142 (137-145) mmol/L Potassium 3.9 (3.5-5.1) mmol/L Chloride 108 H (98-107) mmol/L Carbon Dioxide 28 (22-30) mmol/L Anion Gap 6 mmol/L BUN 11 (9-20) mg/dL Creatinine 0.92 (0.66-1.25) mg/dL Est GFR (CKD-EPI)AfAm >90 (>60 ml/min/1.73 sqM) Est GFR (CKD-EPI)NonAf >90 (>60 ml/min/1.73 sqM) Glucose 121 H (74-99) mg/dL Calcium 9.3 (8.4-10.2) mg/dL Magnesium 2.1 (1.6-2.3) mg/dL Total Bilirubin 0.6 (0.2-1.3) mg/dL AST 30 (17-59) U/L ALT 44 (21-72) U/L Alkaline Phosphatase 72 (38-126) U/L CK-MB (CK-2) 0.4 (0.0-2.4) ng/mL Troponin I 0.044 H* (0.000-0.034) ng/mL Total Protein 6.5 (6.3-8.2) g/dL Albumin 4.0 (3.5-5.0) g/dL 06/24/18 Range/Units 22:41 WBC (3.8-10.6) k/uL RBC (4.30-5.90) m/uL Hgb (13.0-17.5) gm/dL Hct (39.0-53.0) % MCV (80.0-100.0) fL MCH (25.0-35.0) pg MCHC (31.0-37.0) g/dL RDW (11.5-15.5) % Plt Count (150-450) k/uL Neutrophils % % Lymphocytes % % Monocytes % % Eosinophils % % Basophils % % Neutrophils # (1.3-7.7) k/uL Lymphocytes # (1.0-4.8) k/uL Monocytes # (0-1.0) k/uL Eosinophils # (0-0.7) k/uL Basophils # (0-0.2) k/uL PT 10.1 (9.0-12.0) sec INR 0.9 (<1.2) APTT 24.2 (22.0-30.0) sec Sodium (137-145) mmol/L Potassium (3.5-5.1) mmol/L Chloride (98-107) mmol/L Carbon Dioxide (22-30) mmol/L Anion Gap mmol/L BUN (9-20) mg/dL Creatinine (0.66-1.25) mg/dL Est GFR (CKD-EPI)AfAm (>60 ml/min/1.73 sqM) Est GFR (CKD-EPI)NonAf (>60 ml/min/1.73 sqM) Glucose (74-99) mg/dL Calcium (8.4-10.2) mg/dL Magnesium (1.6-2.3) mg/dL Total Bilirubin (0.2-1.3) mg/dL AST (17-59) U/L ALT (21-72) U/L Alkaline Phosphatase (38-126) U/L CK-MB (CK-2) (0.0-2.4) ng/mL Troponin I (0.000-0.034) ng/mL Total Protein (6.3-8.2) g/dL Albumin (3.5-5.0) g/dL Disposition Clinical Impression: NSTEMI (non-ST elevated myocardial infarction) Disposition: ADMITTED IP TO THIS HOSP Condition: Critical Referrals: Rigoberto Sheppard MD [Primary Care Provider] - 1-2 days Decision Time: 00:19
[2018-06-24 22:55] LABS: Basophils # (A) 0.1 k/uL (0-0.2); Basophils % (A) 1 %; Eosinophils # (A) 0.3 k/uL (0-0.7); Eosinophils % (A) 4 %; HCT 41.8 % (39.0-53.0); HGB 14.2 gm/dL (13.0-17.5); Lymphocytes # (A) 1.5 k/uL (1.0-4.8); Lymphocytes % (A) 20 %; MCH 29.8 pg (25.0-35.0); MCV 87.8 fL (80.0-100.0); Mean Platelet Volume 6.3; Monocytes # (A) 0.5 k/uL (0-1.0); Monocytes % (A) 7 %; Neutrophils # (A) 4.9 k/uL (1.3-7.7); Neutrophils % (A) 64 %; Platelet Count 233 k/uL (150-450); RBC 4.76 m/uL (4.30-5.90); RDW 12.5 % (11.5-15.5); WBC 7.5 k/uL (3.8-10.6)
[2018-06-24 23:02] LABS: ALT 44 U/L (21-72); AST 30 U/L (17-59); Alkaline Phosphatase 72 U/L (38-126); Anion Gap 6 mmol/L; Blood Urea Nitrogen 11 mg/dL (9-20); Calcium 9.3 mg/dL (8.4-10.2); Carbon Dioxide 28 mmol/L (22-30); Chloride 108 mmol/L (98-107); Glucose 121 mg/dL (74-99); Magnesium 2.1 mg/dL (1.6-2.3); Potassium 3.9 mmol/L (3.5-5.1); Sodium 142 mmol/L (137-145); Total Bilirubin 0.6 mg/dL (0.2-1.3); Total Protein 6.5 g/dL (6.3-8.2)
[2018-06-24 23:06] LABS: INR 0.9 (<1.2); Partial Thromboplastin Time 24.2 sec (22.0-30.0); Prothrombin Time 10.1 sec (9.0-12.0)
--- NOTE | 2018-06-24 23:15 | XR ---
EXAM: XR Chest, 2 Views CLINICAL HISTORY: ITS.REASON XR Reason: Chest Pain TECHNIQUE: Frontal and lateral views of the chest. COMPARISON: No relevant prior studies available. FINDINGS: Lungs: Unremarkable. No consolidation. Pleural space: Unremarkable. No pneumothorax. Heart: Unremarkable. No cardiomegaly. Mediastinum: Unremarkable. Bones/joints: No acute fracture. IMPRESSION: No acute findings.
[2018-06-24 23:24] LABS: Creatine Kinase MB 0.4 ng/mL (0.0-2.4)
[2018-06-24] MEDS ORDERED: HEPARIN SOD,PORK IN 0.45% NACL 25,000 UNIT in 0.45% NACL 1 250ML.BAG IV SCH (23:45)
[2018-06-24 23:46] LABS: Troponin I 0.044 ng/mL (0.000-0.034)
[2018-06-24] MEDS ORDERED: HEPARIN SODIUM,PORCINE 5,000 UNIT/ML 1 ML VIAL IV PRN (23:46)
[2018-06-24] MEDS ORDERED: HEPARIN SODIUM,PORCINE 5,000 UNIT/ML 1 ML VIAL IV ONE (23:46)
[2018-06-25] MEDS ORDERED: NITROGLYCERIN SL TABS 0.4 MG TAB SUBLINGUAL PRN ×2 (00:16→12:54)
[2018-06-25 08:29] LABS: Glucose,Whole Blood 117 mg/dL (75-99)
[2018-06-25 08:53] VITALS: BMI 33.6
--- NOTE | 2018-06-25 10:23 | P.CRDCN ---
History of Present Illness History of present illness: This is Dr. Parker dictating a consult on this patient The patient was interviewed and examined by me IMPRESSION / ASSESSMENT: Non-Q wave myocardial infarction Prior acute myocardial infarction in early April status post stenting to the RCA Patient has been compliant with his medications PLAN: Continue dual antiplatelet therapy continue heparin continue other cardiac medications I spoke to Dr. Rapp and we will proceed with coronary angiography today HPI Patient presented with exertional pressure in the chest which reminded him of his symptoms when he had his acute myocardial infarction and early family and thereafter underwent coronary stenting Lasted for approximately an hour but by the time he arrived here in the emergency room his pain is already getting better No other associated symptoms ROS: No fever chills or rigors, no cough, phlegm or expectoration, no nausea, vomiting or diarrhea, no hematuria, dysuria, no musculoskeletal complaints, no strokes or seizures, no skin lesions. EXAMINATION: Blood pressure 5-65 mmHg respirations normal patient looks comfortable lying in bed no orthopnea Pulse rate in the 60s and 70s Afebrile Breath sounds are clear no rhonchi no crackles Normal heart sounds normal S1 normal S2 no murmurs or gallops or rub Abdomen soft nontender Extremities no edema REVIEW OF LABS, ECG & MEDICAL DATA Hemoglobin 14.2, potassium 3.9, BUN/creatinine normal magnesium 2.1 Troponin 0.044 and 0.5 Twelve-lead ECG shows sinus rhythm with normal ST segments initially but the follow-up ECGs show subtle ST segment elevation that could be considered early repositioner abnormalities but it seems to a definite change. However the suresh ent is completely asymptomatic at this time he is on IV heparin Past Medical History Past Medical History: Chest Pain / Angina History of Any Multi-Drug Resistant Organisms: None Reported Past Surgical History: Heart Catheterization With Stent, Orthopedic Surgery, Tonsillectomy Additional Past Surgical History / Comment(s): GALLBLADDER, broke his R foot Past Anesthesia/Blood Transfusion Reactions: No Reported Reaction Date of Last Stent Placement:: 04/18/2018 Past Psychological History: No Psychological Hx Reported Smoking Status: Current some day smoker Past Alcohol Use History: None Reported Past Drug Use History: None Reported Medications and Allergies Home Medications Medication Instructions Recorded Confirmed Type Aspirin [Yolo Aspirin EC] 81 mg PO HS 04/24/18 06/24/18 History Atorvastatin [Lipitor] 80 mg PO HS #90 tab 04/25/18 06/24/18 Rx Nicotine 14Mg/24Hr Patch [Habitrol] 1 patch TRANSDERM DAILY 30 Days 04/25/18 06/24/18 Rx #30 patch Ibuprofen [Motrin Ib] 400 mg PO Q6H PRN 06/24/18 06/24/18 History Prasugrel [Effient] 10 mg PO HS 06/24/18 06/24/18 History Allergies Allergy/AdvReac Type Severity Reaction Status Date / Time No Known Allergies Allergy Verified 06/24/18 22:18 Physical Exam Vitals: Vital Signs Temp Pulse Pulse Resp BP BP Pulse Ox 06/25/18 08:00 97.7 F 68 16 105/65 98 06/25/18 07:34 98.2 F 71 18 105/65 96 06/25/18 06:07 75 06/25/18 05:50 19 06/25/18 05:19 98.1 F 74 17 112/73 97 06/25/18 04:02 18 06/25/18 03:11 17 06/25/18 02:26 97.7 F 66 18 103/62 06/25/18 02:00 66 17 123/78 93 L 06/24/18 21:31 99.7 F H 98 18 135/83 96 Intake and Output 06/24/18 06/25/18 06/25/18 22:59 06:59 14:59 Intake Total 70.546 Balance 70.546 Intake: Intake, IV Titration 70.546 Amount Heparin Sod,Pork in 0.45% 70.546 NaCl 25,000 unit In 0.45 % NaCl 1 250ml.bag @ 9 UNITS/KG/HR 9.798 mls/hr IV .Q24H [facility] Rx#: [id number] Other: Weight 108.862 kg 112.5 kg Results 06/24/18 22:41 06/24/18 22:41 Cardiac Enzymes 06/24/18 06/24/18 06/25/18 Range/Units 22:41 22:41 04:22 AST 30 (17-59) U/L CK-MB (CK-2) 0.4 (0.0-2.4) ng/mL Troponin I 0.044 H* 0.500 H* (0.000-0.034) ng/mL Coagulation 06/24/18 06/25/18 Range/Units 22:41 07:02 PT 10.1 (9.0-12.0) sec APTT 24.2 37.8 H (22.0-30.0) sec CBC 06/24/18 Range/Units 22:41 WBC 7.5 (3.8-10.6) k/uL RBC 4.76 (4.30-5.90) m/uL Hgb 14.2 (13.0-17.5) gm/dL Hct 41.8 (39.0-53.0) % Plt Count 233 (150-450) k/uL Comprehensive Metabolic Panel 06/24/18 Range/Units 22:41 Sodium 142 (137-145) mmol/L Potassium 3.9 (3.5-5.1) mmol/L Chloride 108 H (98-107) mmol/L Carbon Dioxide 28 (22-30) mmol/L BUN 11 (9-20) mg/dL Creatinine 0.92 (0.66-1.25) mg/dL Glucose 121 H (74-99) mg/dL Calcium 9.3 (8.4-10.2) mg/dL AST 30 (17-59) U/L ALT 44 (21-72) U/L Alkaline Phosphatase 72 (38-126) U/L Total Protein 6.5 (6.3-8.2) g/dL Albumin 4.0 (3.5-5.0) g/dL Current Medications Generic Name Dose Route Start Last Admin Trade Name Freq PRN Reason Stop Dose Admin Aspirin 325 mg 06/26/18 09:00 Aspirin PO DAILY [facility] Atorvastatin Calcium 80 mg 06/25/18 21:00 Lipitor PO HS [facility] Heparin Sodium (Porcine) 0 unit 06/24/18 23:46 06/25/18 07:56 Heparin IV 4,000 unit PER PROTOCOL PRN Administration Low PTT Protocol Heparin Sodium/Sodium Chloride 250 mls @ 9.798 mls/hr 06/24/18 23:45 06/25/18 07:53 25,000 unit/ Sodium Chloride IV 12 units/kg/hr .Q24H [facility] 13.063 mls/hr Titration Protocol 9 UNITS/KG/HR Nitroglycerin 0.4 mg 06/25/18 00:16 Nitrostat SUBLINGUAL Q5M PRN Chest Pain Prasugrel 10 mg 06/25/18 21:00 Effient PO HS [facility] Intake and Output 06/24/18 06/25/18 06/25/18 22:59 06:59 14:59 Intake Total 70.546 Balance 70.546 Intake: Intake, IV Titration 70.546 Amount Heparin Sod,Pork in 0.45% 70.546 NaCl 25,000 unit In 0.45 % NaCl 1 250ml.bag @ 9 UNITS/KG/HR 9.798 mls/hr IV .Q24H [facility] Rx#: [id number] Other: Weight 108.862 kg 112.5 kg Patient Weight 06/26/18 06:59 Weight 112.5 kg 06/24/18 22:41 06/24/18 22:41
--- NOTE | 2018-06-25 11:10 | P.HPIM ---
History of Present Illness H&P Date: 06/25/18 This is a 48-year-old male patient presents to ER with complaints of chest pain. Patient was admitted approximately 2 months ago in which he received a stent to RCA. Patient reports that he has been taking his Effient blood thinner as ordered. Patient reports that he was at work last night when starting to experiencing chest pressure that radiated up to his jaw. Patient reports the pain is constant. Patient does have past medical history of tonsillectomy and nicotine dependence. Chest x-ray completed showing no acute findings. EKG completed showing normal sinus rhythm normal ECG. Troponin 0.0446 and troponin 0.500. Cardiology services have been consulted. heparin drip has been ini tiated. This time patient is resting comfortably in bed. Patient denies chest pain or shortness breath. Patient denies nausea vomiting or diarrhea. Patient denies any urinary burning or frequency. Review of Systems Please refer to HPI otherwise unremarkable Past Medical History Past Medical History: Chest Pain / Angina History of Any Multi-Drug Resistant Organisms: None Reported Past Surgical History: Heart Catheterization With Stent, Orthopedic Surgery, Tonsillectomy Additional Past Surgical History / Comment(s): GALLBLADDER, broke his R foot Past Anesthesia/Blood Transfusion Reactions: No Reported Reaction Date of Last Stent Placement:: 04/18/2018 Past Psychological History: No Psychological Hx Reported Smoking Status: Current some day smoker Past Alcohol Use History: None Reported Past Drug Use History: None Reported Medications and Allergies Home Medications Medication Instructions Recorded Confirmed Type Aspirin [[place] Aspirin EC] 81 mg PO HS 04/24/18 06/24/18 History Atorvastatin [Lipitor] 80 mg PO HS #90 tab 04/25/18 06/24/18 Rx Nicotine 14Mg/24Hr Patch [Habitrol] 1 patch TRANSDERM DAILY 30 Days 04/25/18 06/24/18 Rx #30 patch Ibuprofen [Motrin Ib] 400 mg PO Q6H PRN 06/24/18 06/24/18 History Prasugrel [Effient] 10 mg PO HS 06/24/18 06/24/18 History Allergies Allergy/AdvReac Type Severity Reaction Status Date / Time No Known Allergies Allergy Verified 06/24/18 22:18 Physical Exam Vitals: Vital Signs Temp Pulse Pulse Resp BP BP Pulse Ox 06/25/18 08:00 97.7 F 68 16 105/65 98 06/25/18 07:34 98.2 F 71 18 105/65 96 06/25/18 06:07 75 06/25/18 05:50 19 06/25/18 05:19 98.1 F 74 17 112/73 97 06/25/18 04:02 18 06/25/18 03:11 17 06/25/18 02:26 97.7 F 66 18 103/62 06/25/18 02:00 66 17 123/78 93 L 06/24/18 21:31 99.7 F H 98 18 135/83 96 Intake and Output 06/24/18 06/25/18 06/25/18 22:59 06:59 14:59 Intake Total 105.163 Balance 105.163 Intake: Intake, IV Titration 105.163 Amount Heparin Sod,Pork in 0.45% 105.163 NaCl 25,000 unit In 0.45 % NaCl 1 250ml.bag @ 9 UNITS/KG/HR 9.798 mls/hr IV .Q24H [facility] Rx#: [id number] Other: Weight 108.862 kg 112.5 kg Head normocephalic Neck supple Lungs clear to auscultation bilaterally no wheezing or crackles Heart regular rate and rhythm S1-S2, no rub or gallop Abdomen is soft nontender nondistended positive bowel sounds no hepatosplenomegaly Extremities no edema Neuro alert and orientated to 3 Results CBC & Chem 7: 06/24/18 22:41 06/24/18 22:41 Labs: Abnormal Lab Results - Last 24 Hours (Table) 06/24/18 06/24/18 06/25/18 Range/Units 22:41 22:41 04:22 APTT (22.0-30.0) sec Chloride 108 H (98-107) mmol/L Glucose 121 H (74-99) mg/dL POC Glucose (mg/dL) (75-99) mg/dL Troponin I 0.044 H* 0.500 H* (0.000-0.034) ng/mL 06/25/18 06/25/18 Range/Units 07:02 08:14 APTT 37.8 H (22.0-30.0) sec Chloride (98-107) mmol/L Glucose (74-99) mg/dL POC Glucose (mg/dL) 117 H (75-99) mg/dL Troponin I (0.000-0.034) ng/mL Thrombosis Risk Factor Assmnt - Choose All That Apply Any of the Below Risk Factors Present?: Yes Each Factor Represents 1 point: Acute [place], Age 41-60 years Other Risk Factors: No Thrombosis Risk Factor Assessment Total Risk Factor Score: 2 Thrombosis Risk Factor Assessment Level: Low Risk Assessment and Plan Assessment: 1. Chest pain. Troponin elevated 0.044., 0.500. Patient started on heparin drip. Chest x-ray completed showing no acute process. Cardiology services have been consulted. Planning coronary angiogram today 2. History of acute myocardial infarction in early April status post stenting of the RCA. Patient reports he has been compliant with his Effient blood thinner medication 3. Nicotine dependence. Patient educated greater than 3 minutes on the importance of smoking cessation. Nicotine patch has been ordered 4. History of cholecystectomy DVT patient currently on heparin. GI prophylaxis Protonix Time with Patient: Greater than 30 (I performed an examination of the patient and discussed their management with the Nurse Practitioner. Greater than 60% of the total time spent in counseling and coordination of care)
[2018-06-25] MEDS ORDERED: IV FLUID CONTINUATION 1,000 ML IV ONE (11:24)
[2018-06-25] MEDS ORDERED: LIDOCAINE 1% INJ 10MG/ML (20 ML MDV) ONE (11:25)
[2018-06-25] MEDS ORDERED: fentaNYL (PF) 50 MCG/ML 2 ML AMP ONE (11:25)
[2018-06-25] MEDS ORDERED: MIDAZOLAM 2 MG/2 ML VIAL IV ONE (11:45)
[2018-06-25] MEDS ORDERED: fentaNYL (PF) 50 MCG/ML 2 ML AMP IV ONE (11:45)
[2018-06-25] MEDS ORDERED: LIDOCAINE 1% INJ 10MG/ML (20 ML MDV) SQ ONE (11:51)
[2018-06-25] MEDS ORDERED: PRASUGREL 10 MG TAB ONE (12:12)
[2018-06-25] MEDS ORDERED: PRASUGREL 10 MG TAB PO ONE (12:14)
[2018-06-25] MEDS ORDERED: BIVALIRUDIN 250 MG in SODIUM CHLORIDE 0.9% 50 ML IV ONE (12:15)
--- NOTE | 2018-06-25 12:32 | CC ---
CARDIAC CATHETERIZATION REPORT INDICATION: Unstable angina in a patient with known CAD, status post prior angioplasty of mid RCA. PROCEDURE NOTE: After obtaining informed consent, left heart catheterization and coronary angiogram were performed via the right femoral artery using standard Kendra catheters. Patient tolerated the procedure well without any obvious immediate complications. Patient received moderate conscious sedation. Total sedation time was 11 minute. FINDINGS: HEMODYNAMICS: Left ventricular end-diastolic pressure is 12 mm. There is no significant gradient across the aortic valve. LEFT VENTRICULOGRAM: Left ventriculogram was not performed. ANGIOGRAPHIC DATA: LEFT MAIN CORONARY ARTERY: Left main coronary artery is a normal-sized vessel and is free of stenosis. Divides into left anterior descending coronary artery and circumflex coronary artery. LAD and its branches, circumflex coronary artery and its branches are free of significant stenosis. Right coronary artery is a large dominant vessel. The previously stented segment within the mid RCA appears patent, distal to the stent, proximal to the bifurcation into PDA and PLV. Previously there was a moderate lesion that has become more significant now, which seems to be an 80%-90% stenosis. CONCLUSION: An 80%-90% stenosis involving distal right coronary artery. This is a progression compared to the angiogram done 2 months ago. PLAN: I am going to have Dr. Bland, the on-call supervisor delivery department evaluate the angiographic data and advise an angioplasty of the distal RCA. MMODL / IJN: [id number] /
[2018-06-25] MEDS ORDERED: NITROGLYCERIN 1000MCG/10ML SYRINGE INTRACORON ONE (12:36)
[2018-06-25] MEDS ORDERED: IOPAMIDOL-370 150ML BTL INJ ONE (12:42)
[2018-06-25] MEDS ORDERED: ATROPINE SULFATE 0.1 MG/ML 10ML SYRINGE IV PRN (12:54)
[2018-06-25] MEDS ORDERED: RX INFO: IV CONTRAST WAS GIVEN 1 EACH MISC MISCELLANE PRN (12:54)
[2018-06-25] MEDS ORDERED: MAG HYDROX/AL HYDROX/SIMETH 30 ML CUP PO PRN (12:54)
[2018-06-25] MEDS ORDERED: ZOLPIDEM 5 MG TAB PO PRN (12:54)
[2018-06-25] MEDS ORDERED: SODIUM CHLORIDE 0.9% 1,000 ML IV SCH (13:00)
--- NOTE | 2018-06-25 13:27 | PTCA ---
PERCUTANEOUSTRANS CORORONARY ANGIOGRAPHY Mr. Lindsey is a 48-year-old male with known history of coronary artery disease who underwent stenting of his right coronary artery in the mid segment in April of this year. He has done quite well until yesterday when he started to have discomfort in the chest, was admitted to the hospital, has minimal troponin elevation. Underwent cardiac catheterization, was found to have significant stenosis in the distal right coronary artery distal to the prior stenting in a segment where he had prior mild to moderate plaque. In view of that, recommendation was made regarding angioplasty and stenting. The procedure as well as the risks and the complications were discussed with the patient who is in full understanding and agreement. DESCRIPTION OF PROCEDURE: A 6-[place] FR4 guiding catheter was introduced into the system. After cannulating the right coronary ostium a 0.014 balanced medium weight J-wire was advanced across the lesion, positioned distally, then a 4.0 x 18 mm Xience [place] was introduced in the system, deployed and post dilated at 18 atmospheres. After the last inflation, after appropriate wait, the balloon and the guidewire were withdrawn back in the guiding catheter. Images were obtained, repeated. Those images reveal stable successful stenting. At that point, the guiding catheter, the balloon and the guidewire were removed. The sheath was removed. Hemostasis was obtained with deployment of an Angio- Seal. There was no immediate complication. Patient was returned to his room in stable condition. Of note, the patient received Angiomax per protocol. He had chest discomfort and EKG changes with the inflations that resolved at the end procedure. RESULTS: Successful stenting of the distal right coronary artery with reduction of stenosis from 99% to 0%. RECOMMENDATION: Patient will be continued on aspirin, Effient, beta sussy, [place] inhibitor, and statin. The importance of dual antiplatelet treatment were discussed with the patient and his family and are in full understanding and agreement. Duration of procedure is 18 minutes. MMODL / IJN: [id number] /
--- NOTE | 2018-06-25 13:38 | LTR ---
June 25, 2018 Re: Bear Gamblen Dear Dr. Sheppard: I had the opportunity to perform coronary angioplasty and stenting on Mr. Lindsey at [facility] on the 25 of June and a full copy of the procedure note will be forwarded to you. In brief he underwent successful stenting of his distal right coronary artery. I am hopeful that this procedure will stabilize his status. Thank you again for allowing me the opportunity to participate in his care. Please feel free to call for any questions. Sincerely yours, MD CRISTIAN WellsL / AISHAN: [id number] /
[2018-06-25 15:06] LABS: Basophils # (A) 0.1 k/uL (0-0.2); Basophils % (A) 1 %; Eosinophils # (A) 0.3 k/uL (0-0.7); Eosinophils % (A) 5 %; HCT 39.7 % (39.0-53.0); HGB 13.5 gm/dL (13.0-17.5); Lymphocytes % (A) 32 %; MCH 30.7 pg (25.0-35.0); MCV 90.4 fL (80.0-100.0); Monocytes # (A) 0.4 k/uL (0-1.0); Monocytes % (A) 6 %; Neutrophils # (A) 3.2 k/uL (1.3-7.7); Neutrophils % (A) 52 %; Platelet Count 232 k/uL (150-450); RBC 4.39 m/uL (4.30-5.90); RDW 13.1 % (11.5-15.5); WBC 6.2 k/uL (3.8-10.6)
[2018-06-25 15:20] LABS: ALT 40 U/L (21-72); AST 26 U/L (17-59); Albumin 3.5 g/dL (3.5-5.0); Alkaline Phosphatase 63 U/L (38-126); Anion Gap 7 mmol/L; Blood Urea Nitrogen 11 mg/dL (9-20); Calcium 8.8 mg/dL (8.4-10.2); Carbon Dioxide 28 mmol/L (22-30); Chloride 108 mmol/L (98-107); Glucose 119 mg/dL (74-99); Potassium 4.4 mmol/L (3.5-5.1); Sodium 143 mmol/L (137-145); Total Bilirubin 0.5 mg/dL (0.2-1.3); Total Protein 5.8 g/dL (6.3-8.2)
[2018-06-25] MEDS ORDERED: ONDANSETRON 4 MG/2 ML VIAL IVP PRN (15:32)
[2018-06-25] MEDS ORDERED: ACETAMINOPHEN TAB 325 MG TAB PO PRN (15:32)
[2018-06-25] MEDS: ATORVASTATIN 80 MG TAB PO SCH (20:55)
[2018-06-25] MEDS: METOPROLOL TARTRATE 25 MG TAB PO SCH (20:56)
[2018-06-25] MEDS ORDERED: PRASUGREL 10 MG TAB PO SCH (21:00)
[2018-06-26 06:08] LABS: Basophils # (A) 0.1 k/uL (0-0.2); Basophils % (A) 1 %; Eosinophils # (A) 0.4 k/uL (0-0.7); Eosinophils % (A) 4 %; HCT 41.2 % (39.0-53.0); HGB 13.2 gm/dL (13.0-17.5); Lymphocytes # (A) 1.9 k/uL (1.0-4.8); Lymphocytes % (A) 22 %; MCH 30.1 pg (25.0-35.0); MCV 93.9 fL (80.0-100.0); Mean Platelet Volume 6.7; Monocytes # (A) 0.5 k/uL (0-1.0); Monocytes % (A) 6 %; Neutrophils # (A) 5.5 k/uL (1.3-7.7); Neutrophils % (A) 63 %; Platelet Count 226 k/uL (150-450); RBC 4.39 m/uL (4.30-5.90); RDW 12.8 % (11.5-15.5); WBC 8.7 k/uL (3.8-10.6)
[2018-06-26 06:19] LABS: ALT 48 U/L (21-72); AST 32 U/L (17-59); Albumin 3.5 g/dL (3.5-5.0); Alkaline Phosphatase 65 U/L (38-126); Anion Gap 5 mmol/L; Blood Urea Nitrogen 14 mg/dL (9-20); Calcium 8.8 mg/dL (8.4-10.2); Carbon Dioxide 23 mmol/L (22-30); Chloride 113 mmol/L (98-107); Cholesterol 120 mg/dL (<200); Glucose 93 mg/dL (74-99); HDL Cholesterol 37 mg/dL (40-60); LDL Cholesterol,Calculated 60 mg/dL (0-99); Potassium 4.4 mmol/L (3.5-5.1); Sodium 141 mmol/L (137-145); Total Bilirubin 0.6 mg/dL (0.2-1.3); Total Protein 5.8 g/dL (6.3-8.2); Triglycerides 114 mg/dL (<150)
[2018-06-26] MEDS: PANTOPRAZOLE 40 MG TABLET PO SCH (08:58)
[2018-06-26] MEDS: ASPIRIN 81 MG PO SCH (08:58)
[2018-06-26] MEDS: METOPROLOL TARTRATE 25 MG TAB PO SCH ×2 (08:58→21:00)
[2018-06-26] MEDS ORDERED: ASPIRIN 325 MG TAB PO SCH (09:00)
[2018-06-26] MEDS: NICOTINE 14MG/24HR PATCH TRANSDERM SCH (10:03)
--- NOTE | 2018-06-26 11:02 | P.PN ---
Subjective Progress Note Date: 06/26/18 This is a 48-year-old male patient presents to ER with complaints of chest pain. Patient was admitted approximately 2 months ago in which he received a stent to RCA. Patient reports that he has been taking his Effient blood thinner as ordered. Patient reports that he was at work last night when starting to experiencing chest pressure that radiated up to his jaw. Patient reports the pain is constant. Patient does have past medical history of tonsillectomy and nicotine dependence. Chest x-ray completed showing no acute findings. EKG completed showing normal sinus rhythm normal ECG. Troponin 0.0446 and troponin 0.500. Cardiology services have been consulted. heparin drip has been initiated. This time patient is resting comfortably in bed. Patient denies chest pain or shortness breath. Patient denies nausea vomiting or diarrhea. Patient denies any urinary burning or frequency. On 06/26/2018 patient alert and oriented 3. Patient received a stent to the distal RCA yesterday. This time patient denies chest pain or shortness of breath. Patient denies nausea vomiting or diarrhea. Patient denies any urinary burning or frequency. Patient is currently on Effient for blood thinner Objective - Vital Signs Vital signs: Vital Signs Temp 98.0 F 06/26/18 08:00 Pulse 72 06/26/18 08:00 Resp 16 06/26/18 08:00 BP 106/64 06/26/18 08:00 Pulse Ox 96 06/26/18 08:00 Intake & Output 06/25/18 06/26/18 06/26/18 18:59 06:59 18:59 Intake Total 843.863 950 600 Output Total 400 350 300 Balance 443.863 600 300 Weight 112.5 kg 108.2 kg Intake: IV 488.7 700 Sodium Chloride 0.9% 1, 300 700 000 ml @ 100 mls/hr IV . Q10H [facility] Rx#:[id number] Intake, IV Titration 105.163 Amount Heparin Sod,Pork in 0.45% 105.163 NaCl 25,000 unit In 0.45 % NaCl 1 250ml.bag @ 9 UNITS/KG/HR 9.798 mls/hr IV .Q24H [facility] Rx#: [id number] Oral 250 250 600 Output: Urine 400 350 300 Other: Voiding Method Urinal Urinal Urinal # Voids 1 1 1 - Exam Head normocephalic Neck supple Lungs clear to auscultation bilaterally no wheezing or crackles Heart regular rate and rhythm S1-S2, no rub or gallop Abdomen is soft nontender nondistended positive bowel sounds no hep atosplenomegaly Extremities no edema Neuro alert and orientated to 3 - Labs CBC & Chem 7: 06/26/18 04:57 06/26/18 04:57 Labs: Abnormal Lab Results - Last 24 Hours (Table) 06/25/18 06/25/18 06/25/18 Range/Units 14:30 14:30 14:31 APTT 49.8 H (22.0-30.0) sec Chloride 108 H (98-107) mmol/L Glucose 119 H (74-99) mg/dL Troponin I 0.204 H* (0.000-0.034) ng/mL Total Protein 5.8 L (6.3-8.2) g/dL HDL Cholesterol (40-60) mg/dL 06/26/18 Range/Units 04:57 APTT (22.0-30.0) sec Chloride 113 H (98-107) mmol/L Glucose (74-99) mg/dL Troponin I (0.000-0.034) ng/mL Total Protein 5.8 L (6.3-8.2) g/dL HDL Cholesterol 37 L (40-60) mg/dL Assessment and Plan Assessment: 1. Chest pain. Troponin elevated 0.044., 0.500. Patient started on heparin drip. Chest x-ray completed showing no acute process. Cardiology services have been consulted. Status post stent placement to the distal RCA. Patient is cur rently postop day 1. Patient currently on Effient for blood thinner medication. 2. History of acute myocardial infarction in early April status post stenting of the RCA. Patient reports he has been compliant with his Effient blood thinner medication 3. Nicotine dependence. Patient educated greater than 3 minutes on the importance of smoking cessation. Nicotine patch has been ordered 4. History of cholecystectomy Anticipate discharge in the next 24-48 hours I performed an examination of the patient and discussed their management with the Nurse Practitioner. I have reviewed the Nurse Practitioner's notes and agree with the documented findings and plan of care
[2018-06-26] MEDS: PRASUGREL 10 MG TAB PO SCH (12:18)
--- NOTE | 2018-06-26 19:47 | P.PN ---
Subjective Patient is doing well. His blood pressure is much better controlled now he has no chest discomfort no shortness of breath. He's been ambulating in his room no dizziness lightheadedness Vitals are stable blood pressure 106/64 mmHg pulse rate in the 70s afebrile Breath sounds are clear Breath sounds are clear Heart sounds S1 and S2 are normal no murmurs or gallops no rub Extended is warm no edema abdomen soft Impression acute myocardial infarction status post stenting and very stable for the last few days. Yesterday his blood pressure was an issue previously just his medications which she has tolerated well he is not dizzy and lightheaded today and may go home and follow Dr. Bland a week Objective - Vital Signs Vital signs: Vital Signs Temp 98.0 F 06/26/18 16:00 Pulse 76 06/26/18 16:00 Resp 16 06/26/18 16:00 BP 91/61 06/26/18 16:00 Pulse Ox 96 06/26/18 16:00 Intake & Output 06/26/18 06/26/18 06/27/18 06:59 18:59 06:59 Intake Total 950 2000 Output Total 350 300 Balance 600 1700 Weight 108.2 kg Intake: IV 700 Sodium Chloride 0.9% 1, 700 000 ml @ 100 mls/hr IV . Q10H [facility] Rx#:[id number] Oral 250 2000 Output: Urine 350 300 Other: Voiding Method Urinal Urinal # Voids 1 1 - Labs CBC & Chem 7: 06/26/18 04:57 06/26/18 04:57 Labs: Abnormal Lab Results - Last 24 Hours (Table) 06/26/18 Range/Units 04:57 Chloride 113 H (98-107) mmol/L Total Protein 5.8 L (6.3-8.2) g/dL HDL Cholesterol 37 L (40-60) mg/dL
--- NOTE | 2018-06-26 19:55 | P.PN ---
Subjective Patient is doing well. His blood pressure are in the 90s systolic and he is asymptomatic. No chest discomfort dizziness lightheadedness He's been ambulating in the room On examination blood pressure 99/64 mmHg afebrile 90F Heart rate 60s Respirations normal nonlabored Normal breath sounds bilaterally no rhonchi no crackles Heart sounds is to normal no murmurs or gallops Extremities warm no edema Impression Acute coronary syndrome, symptoms of angina Status post stenting to the RCA Suggest Continue dual antiplatelet therapy statins and beta blockers Likely discharge tomorrow after ambulation and of his blood pressure stable Objective - Vital Signs Vital signs: Vital Signs Temp 98.0 F 06/26/18 16:00 Pulse 76 06/26/18 16:00 Resp 16 06/26/18 16:00 BP 91/61 06/26/18 16:00 Pulse Ox 96 06/26/18 16:00 Intake & Output 06/26/18 06/26/18 06/27/18 06:59 18:59 06:59 Intake Total 950 2000 Output Total 350 300 Balance 600 1700 Weight 108.2 kg Intake: IV 700 Sodium Chloride 0.9% 1, 700 000 ml @ 100 mls/hr IV . Q10H [facility] Rx#:[id number] Oral 250 2000 Output: Urine 350 300 Other: Voiding Method Urinal Urinal # Voids 1 1 - Labs CBC & Chem 7: 06/26/18 04:57 06/26/18 04:57 Labs: Abnormal Lab Results - Last 24 Hours (Table) 06/26/18 Range/Units 04:57 Chloride 113 H (98-107) mmol/L Total Protein 5.8 L (6.3-8.2) g/dL HDL Cholesterol 37 L (40-60) mg/dL
[2018-06-26] MEDS: ATORVASTATIN 80 MG TAB PO SCH (21:00)
[2018-06-27 05:44] LABS: Basophils # (A) 0.1 k/uL (0-0.2); Basophils % (A) 1 %; Eosinophils # (A) 0.4 k/uL (0-0.7); Eosinophils % (A) 5 %; HCT 40.4 % (39.0-53.0); HGB 13.1 gm/dL (13.0-17.5); Lymphocytes # (A) 2.1 k/uL (1.0-4.8); Lymphocytes % (A) 29 %; MCH 29.7 pg (25.0-35.0); MCHC 32.4 g/dL (31.0-37.0); MCV 91.8 fL (80.0-100.0); Mean Platelet Volume 6.8; Monocytes # (A) 0.5 k/uL (0-1.0); Monocytes % (A) 7 %; Neutrophils # (A) 3.8 k/uL (1.3-7.7); Neutrophils % (A) 54 %; Platelet Count 218 k/uL (150-450); RDW 12.6 % (11.5-15.5); WBC 7.2 k/uL (3.8-10.6)
[2018-06-27 05:52] LABS: ALT 45 U/L (21-72); AST 32 U/L (17-59); Albumin 3.6 g/dL (3.5-5.0); Alkaline Phosphatase 67 U/L (38-126); Anion Gap 7 mmol/L; Blood Urea Nitrogen 11 mg/dL (9-20); Calcium 8.8 mg/dL (8.4-10.2); Carbon Dioxide 25 mmol/L (22-30); Chloride 109 mmol/L (98-107); Glucose 119 mg/dL (74-99); Sodium 141 mmol/L (137-145); Total Bilirubin 0.4 mg/dL (0.2-1.3); Total Protein 5.9 g/dL (6.3-8.2)
[2018-06-27] MEDS: ASPIRIN 81 MG PO SCH (08:16)
[2018-06-27] MEDS: PANTOPRAZOLE 40 MG TABLET PO SCH (08:16)
[2018-06-27] MEDS: METOPROLOL TARTRATE 25 MG TAB PO SCH (08:16)
[2018-06-27] MEDS: PRASUGREL 10 MG TAB PO SCH (08:16)
[2018-06-27] MEDS: NICOTINE 14MG/24HR PATCH TRANSDERM SCH (10:20)
[2018-06-27 11:19] VITALS: RESP 16
--- NOTE | 2018-06-27 13:34 | P.DS ---
Providers Date of admission: 06/25/18 00:18 Expected date of discharge: 06/27/18 Attending physician: Rigoberto Sheppard Consults: 06/25/18 00:16 Consult Physician Urgent Consulting Provider: Ramses Bland Consult Reason/Comments: nstemi Do you want consulting provider notified?: Yes 06/25/18 12:54 Consult Physician Routine Consulting Provider: [facility] Consult Reason/Comments: Post Interventional patient Do you want consulting provider notified?: Already Contacted Primary care physician: Rigoberto Valarie [facility] Course: Discharge diagnosis 1. Chest pain. Troponin elevated 0.044., 0.500. Patient started on heparin drip. Chest x-ray completed showing no acute process. Cardiology services have been consulted. Status post stent placement to the distal RCA. Patient is currently postop day 1. Patient currently on Effient for blood thinner medication. 2. History of acute myocardial infarction in early April status post sten ting of the RCA. Patient reports he has been compliant with his Effient blood thinner medication 3. Nicotine dependence. Patient educated greater than 3 minutes on the importance of smoking cessation. Nicotine patch has been ordered 4. History of cholecystectomy Hospital course This is a 48-year-old male patient presents to ER with complaints of chest pain. Patient was admitted approximately 2 months ago in which he received a stent to RCA. Patient reports that he has been taking his Effient blood thinner as ordered. Patient reports that he was at work last night when starting to experiencing chest pressure that radiated up to his jaw. Patient reports the pain is constant. Patient does have past medical history of tonsillectomy and nicotine dependence. Chest x-ray completed showing no acute findings. EKG completed showing normal sinus rhythm normal ECG. Troponin 0.0446 and troponin 0.500. Cardiology services have been consulted. heparin drip has been initiated. This time patient is resting comfortably in bed. Patient denies chest pain or shortness breath. Patient denies nausea vomiting or diarrhea. Patient denies any urinary burning or frequency. On 06/26/2018 patient alert and oriented 3. Patient received a stent to the distal RCA yesterday. This time patient denies chest pain or shortness of breath. Patient denies nausea vomiting or diarrhea. Patient denies any urinary burning or frequency. Patient is currently on Effient for blood thinner On 06/27/2018 patient's alert and oriented 3. Patient has been cleared by cardiology services for discharge. Patient has denied any chest pain or shortness of breath. Patient has been up ambulating. Patient started on metoprolol per cardiology services. Blood pressure 90s. Cardiology services are aware. Patient is symptomatically to continue beta sussy per cardiology. Patient will be discharged on Effient and aspirin. Also continue statin. Patient educated again on the importance of complete smoking cessation. Patient to continue nicotine patch Patient Condition at Discharge: Stable Plan - Discharge Summary Discharge Rx Participant: Yes New Discharge Prescriptions: New Nicotine 14Mg/24Hr Patch [Habitrol] 1 patch TRANSDERM DAILY patch Metoprolol Tartrate [Lopressor] 25 mg PO BID 30 Days #60 tab Continue Aspirin [[place] Aspirin EC] 81 mg PO HS Atorvastatin [Lipitor] 80 mg PO HS #90 tab Nicotine 14Mg/24Hr Patch [Habitrol] 1 patch TRANSDERM DAILY 30 Days #30 patch Ibuprofen [Motrin Ib] 400 mg PO Q6H PRN PRN Reason: Pain Prasugrel [Effient] 10 mg PO HS 30 Days #30 tab Discharge Medication List Aspirin [[place] Aspirin EC] 81 mg PO HS 04/24/18 [History] Atorvastatin [Lipitor] 80 mg PO HS #90 tab 04/25/18 [Rx] Nicotine 14Mg/24Hr Patch [Habitrol] 1 patch TRANSDERM DAILY 30 Days #30 patch 04/25/18 [Rx] Ibuprofen [Motrin Ib] 400 mg PO Q6H PRN 06/24/18 [History] Metoprolol Tartrate [Lopressor] 25 mg PO BID 30 Days #60 tab 06/27/18 [Rx] Nicotine 14Mg/24Hr Patch [Habitrol] 1 patch TRANSDERM DAILY patch 06/27/18 [Rx] Prasugrel [Effient] 10 mg PO HS 30 Days #30 tab 06/27/18 [Rx] Follow up Appointment(s)/Referral(s): Geraldo Parker MD [STAFF PHYSICIAN] - 1 Week Rigoberto Sheppard MD [Primary Care Provider] - 1-2 days Patient Instructions/Handouts: Heart Attack (DC), How to Stop Smoking (DC), Heart Healthy Diet (DC), Heart Catheterization (DC) Discharge Disposition: HOME SELF-CARE
--- NOTE | 2018-06-27 13:55 | P.PN ---
Subjective Patient is doing well. He is sitting comfortably in bed. He's been ablating in the room. No chest discomfort dizziness lightheadedness or palpitations despite his blood pressure being in the high 90s Blood pressure 109/73 mmHg 94/55 mmHg pulse rate in the 60s afebrile Breath sounds are clear no rhonchi no crackles Heart sounds are normal no murmurs or gallops no rub Extremities warm no edema Impression Coronary artery disease status post coronary stenting for non-Q-wave myocardial infarction Patient is very stable and can go home on dual antiplatelet therapy statins and cardiac medications Continue aspirin and Effient line continue metoprolol Continue atorvastatin a Follow Dr. Butcher within one to 2 weeks Objective - Vital Signs Vital signs: Vital Signs Temp 97.7 F 06/27/18 11:16 Pulse 68 06/27/18 11:16 Resp 16 06/27/18 11:16 BP 94/59 06/27/18 11:16 Pulse Ox 95 06/27/18 11:16 Intake & Output 06/26/18 06/27/18 06/27/18 18:59 06:59 18:59 Intake Total 2000 750 960 Output Total 300 Balance 1700 750 960 Weight 106.8 kg Intake: Oral 2000 750 960 Output: Urine 300 Other: Voiding Method Urinal Urinal Urinal # Voids 1 1 1 - Labs CBC & Chem 7: 06/27/18 04:19 06/27/18 04:19 Labs: Abnormal Lab Results - Last 24 Hours (Table) 06/27/18 Range/Units 04:19 Chloride 109 H (98-107) mmol/L Glucose 119 H (74-99) mg/dL Total Protein 5.9 L (6.3-8.2) g/dL
[2018-06-27 15:19] VITALS: BP 97/67; PULSE 71; TEMP 98.2
== END 2018-06-27 15:40 | disposition home or self-care (01) | DRG 247 ==
LOC: EC 21:23 → 3SCARD 06-25 00:18 → 2SICU 06-25 07:27
PROVIDERS: ADMIT Internal Medicine; ATTEND Internal Medicine
PROC: B2111ZZ Fluoroscopy of Multiple Coronary Arteries using Low Osmolar Contrast (ICD-10-PCS; 2018-06-25)
PROC: 027034Z Dilation of Coronary Artery, One Artery with Drug-eluting Intraluminal Device, Percutaneous Approach (ICD-10-PCS; principal; 2018-06-25 11:00)
PROC: 4A023N7 Measurement of Cardiac Sampling and Pressure, Left Heart, Percutaneous Approach (ICD-10-PCS; 2018-06-25 11:00)
DX: I21.4 Non-ST elevation (NSTEMI) myocardial infarction (principal); F17.200 Nicotine dependence, unspecified, uncomplicated; I25.2 Old myocardial infarction; I25.10 Atherosclerotic heart disease of native coronary artery without angina pectoris; Z79.82 Long term (current) use of aspirin; Z79.02 Long term (current) use of antithrombotics/antiplatelets; Z79.899 Other long term (current) drug therapy; Z90.49 Acquired absence of other specified parts of digestive tract; Z95.5 Presence of coronary angioplasty implant and graft; Z82.49 Family history of ischemic heart disease and other diseases of the circulatory system
CPT/HCPCS: 36415; 71046; 80053; 80061; 82553; 83735; 84484; 85025; 85347; 85610; 85730; 93005; 93458; 96365; 96366; 96376; 99285; C1874

== ENCOUNTER 2018-12-05 11:05 | Day surgery (SDC) | payer BC ==
[2018-12-04 09:39] VITALS: BMI 31.8
[~2018-12-05 11:05] MED LIST: LACTATED RINGERS 1,000 ML IV SCH; LIDOCAINE 1% 20 ML VIAL (10MG/ML) FOR IV START INTRADERMA PRN
[2018-12-05 11:23] VITALS: TEMP 98.6
[2018-12-05] MEDS ORDERED: PROPOFOL 10 MG/ML 20 ML VIAL IV ONE (11:28)
[2018-12-05] MEDS ORDERED: LACTATED RINGERS 1,000 ML IV ONE (11:28)
--- NOTE | 2018-12-05 11:31 | P.GSHP ---
History of Present Illness H&P Date: 12/05/18 Chief Complaint: colon cancer screening Patient here today for screening colonoscopy. He has not had one previously. Family history of colon cancer in his grandparents. No bowel related complaints. Past Medical History Past Medical History: Chest Pain / Angina Additional Past Medical History / Comment(s): rt foot fx at age 20 History of Any Multi-Drug Resistant Organisms: None Reported Past Surgical History: Cholecystectomy, Heart Catheterization With Stent, Orthopedic Surgery, Tonsillectomy Additional Past Surgical History / Comment(s): heart stent x2,heart cath x2 Past Anesthesia/Blood Transfusion Reactions: No Reported Reaction Date of Last Stent Placement:: 04/18/2018, Smoking Status: Current every day smoker - Past Family History Mother Family Medical History: No Reported History Medications and Allergies Home Medications Medication Instructions Recorded Confirmed Type Aspirin [[place] Aspirin EC] 81 mg PO HS 04/24/18 12/05/18 History Atorvastatin [Lipitor] 80 mg PO HS #90 tab 04/25/18 12/05/18 Rx Prasugrel [Effient] 10 mg PO DAILY 30 Days #30 tab 06/27/18 12/05/18 Rx Metoprolol Tartrate [Lopressor] 25 mg PO HS 12/04/18 12/05/18 History Allergies Allergy/AdvReac Type Severity Reaction Status Date / Time No Known Allergies Allergy Verified 12/05/18 11:18 Surgical - Exam Vital Signs Temp Pulse Resp BP Pulse Ox 98.6 F 77 16 122/69 97 12/05/18 11:15 12/05/18 11:15 12/05/18 11:15 12/05/18 11:15 12/05/18 11:15 Physical exam: General: Well-developed, well-nourished HEENT: Normocephalic, sclerae nonicteric Abdomen: Nontender, nondistended Extremities: No edema Neuro: Alert and oriented Assessment and Plan (1) Colon cancer screening Narrative/Plan: Will proceed with colonoscopy at this time Current Visit: Yes Status: Acute Code(s): Z12.11 - ENCOUNTER FOR SCREENING FOR MALIGNANT NEOPLASM OF COLON SNOMED Code(s): 776226728
--- NOTE | 2018-12-05 11:45 | P.PCN ---
Date of Procedure: 12/05/18 Procedure(s) Performed: PREOPERATIVE DIAGNOSIS: Colon cancer screening, family history of colon cancer POSTOPERATIVE DIAGNOSIS: Sigmoid and rectal polyp PROCEDURE: Colonoscopy with snare polypectomy ANESTHESIA: MAC SURGEON: Samuel Callejas M.D. SPECIMENS: Polyps ENDOSCOPIC PROCEDURE: The patient was placed on the endoscopy table in the left decubitus position. The Olympus colonoscope was inserted into the anus and passed under direct visualization to the base of the cecum. The appendiceal orifice was visualized. From that point the scope was slowly withdrawn inspecting all surfaces carefully. There were no neoplastic inflammatory or polypoid lesions throughout the cecum, ascending, transverse, and descending colon. In the sigmoid colon a small polyp was identified and removed using the snare with cautery technique. Another small polyp was seen in the rectum and removed in a similar fashion. There was no visible diverticulosis. Digital rectal examination was normal. The patient was taken to the recovery room in stable condition per anesthesia guidelines. RECOMMENDATIONS: Increase fiber. Follow-up colonoscopy based on pathology findings.
[2018-12-05 12:23] VITALS: BP 100/67; PULSE 66; RESP 16
== END 2018-12-05 12:30 | disposition home or self-care (01) ==
LOC: ORWHC2ENDO 11:05
PROVIDERS: ATTEND Surgery
DX: Z12.11 Encounter for screening for malignant neoplasm of colon (principal); K63.5 Polyp of colon; K62.1 Rectal polyp; Z80.0 Family history of malignant neoplasm of digestive organs; I25.119 Atherosclerotic heart disease of native coronary artery with unspecified angina pectoris; I10 Essential (primary) hypertension; E78.5 Hyperlipidemia, unspecified; F17.210 Nicotine dependence, cigarettes, uncomplicated; Z90.49 Acquired absence of other specified parts of digestive tract; Z95.5 Presence of coronary angioplasty implant and graft; Z79.02 Long term (current) use of antithrombotics/antiplatelets; Z79.82 Long term (current) use of aspirin; Z79.899 Other long term (current) drug therapy
CPT/HCPCS: 88305; 45385; J2704

== ENCOUNTER 2021-08-19 06:01 | Observation (INO) | payer BC, MEDICARE ==
[2021-08-19] MEDS ORDERED: SODIUM CHLORIDE 0.9% 1,000 ML IV STA (06:39)
[2021-08-19] MEDS ORDERED: ONDANSETRON 4 MG/2 ML VIAL IVP STA (06:39)
[2021-08-19] MEDS ORDERED: FAMOTIDINE 20 MG/2 ML VIAL IV STA (06:39)
--- NOTE | 2021-08-19 06:43 | ED ---
Abdominal Pain HPI - General Chief Complaint: Abdominal Pain Stated Complaint: abd pain, vomiting Time Seen by Provider: 08/19/21 06:21 Source: patient, family, RN notes reviewed Mode of arrival: ambulatory Limitations: no limitations - History of Present Illness Initial Comments: This is a 51-year-old male who presents to the emergency department for ep igastric pain, nausea, and vomiting. Yesterday he began to develop epigastric pain that has since progressed. He has also felt nauseous and this morning had an episode of emesis. Denies any hematemesis. He states that he can feel his stomach rumbling. Also states that the symptoms feel similar to when he had his gallbladder out 6 or 7 years ago. Denies any changes in his bowel or urinary habits. Denies any associated shortness of breath. He does have a history of acid reflux, but states that this feels much worse. Denies any fevers, chills, sore throat, cough, dyspnea, chest pain, palpitations, diarrhea, back pain, or headaches. MD Complaint: abdominal pain Onset/Timin -: days(s) Location: epigastric Quality: sharp Consistency: constant Associated Symptoms: nausea, vomiting - Related Data Home Medications Medication Instructions Recorded Confirmed Aspirin [[place] Aspirin EC] 81 mg PO HS 04/24/18 08/19/21 Metoprolol Tartrate [Lopressor] 25 mg PO HS 12/04/18 08/19/21 Previous Rx's Medication Instructions Recorded Atorvastatin [Lipitor] 80 mg PO HS #90 tab 04/25/18 Pantoprazole Sodium [Protonix] 40 mg PO DAILY 30 Days #30 tab 08/20/21 Allergies Allergy/AdvReac Type Severity Reaction Status Date / Time No Known Allergies Allergy Verified 08/19/21 06:19 Review of Systems ROS Statement: Those systems with pertinent positive or pertinent negative responses have been documented in the HPI. ROS Other: All systems not noted in ROS Statement are negative. Past Medical History Past Medical History: Chest Pain / Angina Additional Past Medical History / Comment(s): rt foot fx at age 20 History of Any Multi-Drug Resistant Organisms: None Reported Past Surgical History: Cholecystectomy, Heart Catheterization With Stent, Orthopedic Surgery, Tonsillectomy Additional Past Surgical History / Comment(s): heart stent x2,heart cath x2 Past Anesthesia/Blood Transfusion Reactions: No Reported Reaction Date of Last Stent Placement:: 04/18/2018, Past Psychological History: No Psychological Hx Reported Smoking Status: Current every day smoker Past Alcohol Use History: Rare Past Drug Use History: None Reported - Past Family History Mother Family Medical History: No Reported History General Exam Limitations: no limitations General appearance: alert, in no apparent distress Head exam: Present: atraumatic, normocephalic, normal inspection Neck exam: Present: normal inspection. Absent: tenderness, meningismus, lymphadenopathy Respiratory exam: Present: normal lung sounds bilaterally. Absent: respiratory distress, wheezes, rales, rhonchi, stridor Cardiovascular Exam: Present: regular rate, normal rhythm, normal heart sounds. Absent: systolic murmur, diastolic murmur, rubs, gallop, clicks GI/Abdominal exam: Present: soft, tenderness (epigastric), hyperactive bowel sounds. Absent: distended Neurological exam: Present: alert, oriented X3, CN II-XII intact Psychiatric exam: Present: normal affect, normal mood Skin exam: Present: warm, dry, intact, normal color. Absent: rash Course Vital Signs 08/19/21 08/19/21 06:16 08:00 Temperature 98.3 F 98.1 F Pulse Rate 71 60 Respiratory 18 18 Rate Blood Pressure 133/82 106/65 O2 Sat by Pulse 95 93 L Oximetry Medical Decision Making - Medical Decision Making This is a 51-year-old male who presents to the emergency department for abdominal pain. Patient given IV fluids, Zofran, Morphine, and Pepcid. Lab work obtained revealing elevated lipase and amylase suggestive of pancreatitis. Patient had a cholecystectomy several years ago and also denies any regular alcohol consumption. Additionally, he had his lipids checked 2.5 months ago, and his triglycerides were within normal limits. He is treated with Atorvastatin, 80 mg daily. Cause of the pancreatitis is unclear. His clinical symptoms do correlate with that of pancreatitis. Ultrasound of the abdomen obtained which had limited evaluation of the pancreas, however was seen did not reveal any abnormalities. Advised that this is not uncommon with pancreatitis. After discussion with the patient, he requests admission for management of symptoms. This case was discussed in detail with the attending ED physician. Presentation, findings, and treatment plan discussed in detail as well. - Lab Data Result diagrams: 08/20/21 06:25 08/20/21 06:25 Lab Results 0608/19/21 08/19/21 Range/Units 07:07 07:07 07:07 WBC 9.3 (3.8-10.6) k/uL RBC 5.08 (4.30-5.90) m/uL Hgb 15.9 (13.0-17.5) gm/dL Hct 46.6 (39.0-53.0) % MCV 91.7 (80.0-100.0) fL MCH 31.3 (25.0-35.0) pg MCHC 34.1 (31.0-37.0) g/dL RDW 12.9 (11.5-15.5) % Plt Count 241 (150-450) k/uL MPV 7.7 Neutrophils % 73 % Lymphocytes % 13 % Monocytes % 7 % Eosinophils % 2 % Basophils % 1 % Neutrophils # 6.7 (1.3-7.7) k/uL Lymphocytes # 1.2 (1.0-4.8) k/uL Monocytes # 0.6 (0-1.0) k/uL Eosinophils # 0.2 (0-0.7) k/uL Basophils # 0.1 (0-0.2) k/uL Sodium 138 (137-145) mmol/L Potassium 4.3 (3.5-5.1) mmol/L Chloride 104 (98-107) mmol/L Carbon Dioxide 26 (22-30) mmol/L Anion Gap 8 mmol/L BUN 16 (9-20) mg/dL Creatinine 1.00 (0.66-1.25) mg/dL Est GFR (CKD-EPI)AfAm >90 (>60 ml/min/1.73 sqM) Est GFR (CKD-EPI)NonAf 88 (>60 ml/min/1.73 sqM) Glucose 149 H (74-99) mg/dL Calcium 10.0 (8.4-10.2) mg/dL Total Bilirubin 0.5 (0.2-1.3) mg/dL AST 37 (17-59) U/L ALT 40 (4-49) U/L Alkaline Phosphatase 90 (38-126) U/L Troponin I (0.000-0.034) ng/mL Total Protein 7.1 (6.3-8.2) g/dL Albumin 4.4 (3.5-5.0) g/dL Amylase 133 H (30-110) U/L Lipase 797 H (23-300) U/L Urine Color Yellow Urine Appearance Clear (Clear) Urine pH 5.5 (5.0-8.0) Ur Specific [place] 1.032 (1.001-1.035) Urine Protein Trace H (Negative) Urine Glucose (UA) Negative (Negative) Urine Ketones Negative (Negative) Urine Blood Small H (Negative) Urine Nitrite Negative (Negative) Urine Bilirubin Negative (Negative) Urine Urobilinogen <2.0 (<2.0) mg/dL Ur Leukocyte Esterase Trace H (Negative) Urine RBC 4 (0-5) /hpf Urine WBC 1 (0-5) /hpf Ur Squamous Epith Cells <1 (0-4) /hpf Urine Mucus Occasional H (None) /hpf 08/19/21 Range/Units 07:07 WBC (3.8-10.6) k/uL RBC (4.30-5.90) m/uL Hgb (13.0-17.5) gm/dL Hct (39.0-53.0) % MCV (80.0-100.0) fL MCH (25.0-35.0) pg MCHC (31.0-37.0) g/dL RDW (11.5-15.5) % Plt Count (150-450) k/uL MPV Neutrophils % % Lymphocytes % % Monocytes % % Eosinophils % % Basophils % % Neutrophils # (1.3-7.7) k/uL Lymphocytes # (1.0-4.8) k/uL Monocytes # (0-1.0) k/uL Eosinophils # (0-0.7) k/uL Basophils # (0-0.2) k/uL Sodium (137-145) mmol/L Potassium (3.5-5.1) mmol/L Chloride (98-107) mmol/L Carbon Dioxide (22-30) mmol/L Anion Gap mmol/L BUN (9-20) mg/dL Creatinine (0.66-1.25) mg/dL Est GFR (CKD-EPI)AfAm (>60 ml/min/1.73 sqM) Est GFR (CKD-EPI)NonAf (>60 ml/min/1.73 sqM) Glucose (74-99) mg/dL Calcium (8.4-10.2) mg/dL Total Bilirubin (0.2-1.3) mg/dL AST (17-59) U/L ALT (4-49) U/L Alkaline Phosphatase (38-126) U/L Troponin I <0.012 (0.000-0.034) ng/mL Total Protein (6.3-8.2) g/dL Albumin (3.5-5.0) g/dL Amylase (30-110) U/L Lipase (23-300) U/L Urine Color Urine Appearance (Clear) Urine pH (5.0-8.0) Ur Specific [place] (1.001-1.035) Urine Protein (Negative) Urine Glucose (UA) (Negative) Urine Ketones (Negative) Urine Blood (Negative) Urine Nitrite (Negative) Urine Bilirubin (Negative) Urine Urobilinogen (<2.0) mg/dL Ur Leukocyte Esterase (Negative) Urine RBC (0-5) /hpf Urine WBC (0-5) /hpf Ur Squamous Epith Cells (0-4) /hpf Urine Mucus (None) /hpf - Radiology Data Radiology results: report reviewed, image reviewed Disposition Clinical Impression: Pancreatitis Disposition: ADMITTED IP TO THIS HOSP
[2021-08-19 07:14] LABS: Basophils # (A) 0.1 k/uL (0-0.2); Basophils % (A) 1 %; Eosinophils # (A) 0.2 k/uL (0-0.7); Eosinophils % (A) 2 %; HCT 46.6 % (39.0-53.0); HGB 15.9 gm/dL (13.0-17.5); Lymphocytes # (A) 1.2 k/uL (1.0-4.8); Lymphocytes % (A) 13 %; MCH 31.3 pg (25.0-35.0); MCHC 34.1 g/dL (31.0-37.0); MCV 91.7 fL (80.0-100.0); Mean Platelet Volume 7.7; Monocytes # (A) 0.6 k/uL (0-1.0); Monocytes % (A) 7 %; Neutrophils # (A) 6.7 k/uL (1.3-7.7); Neutrophils % (A) 73 %; Platelet Count 241 k/uL (150-450); RBC 5.08 m/uL (4.30-5.90); RDW 12.9 % (11.5-15.5); WBC 9.3 k/uL (3.8-10.6)
[2021-08-19 07:36] LABS: ALT 40 U/L (4-49); AST 37 U/L (17-59); African American GFR (CKD) >90 (>60 ml/min/1.73 sqM); Albumin 4.4 g/dL (3.5-5.0); Alkaline Phosphatase 90 U/L (38-126); Amylase 133 U/L (30-110); Anion Gap 8 mmol/L; Blood Urea Nitrogen 16 mg/dL (9-20); Carbon Dioxide 26 mmol/L (22-30); Chloride 104 mmol/L (98-107); Glucose 149 mg/dL (74-99); Lipase 797 U/L (23-300); Non-African American GFR(CKD) 88 (>60 ml/min/1.73 sqM); Potassium 4.3 mmol/L (3.5-5.1); Sodium 138 mmol/L (137-145); Total Bilirubin 0.5 mg/dL (0.2-1.3); Total Protein 7.1 g/dL (6.3-8.2)
[2021-08-19] MEDS ORDERED: MORPHINE SULFATE 2 MG/ML SYRINGE IVP STA (08:02)
[2021-08-19 08:27] LABS: Appearance,Urine Clear (Clear); Bilirubin,Urine Negative (Negative); Blood,Urine Small (Negative); Color,Urine Yellow; Glucose,Urine (UA) Negative (Negative); Ketones,Urine Negative (Negative); Leukocyte Esterase,Urine Trace (Negative); Mucus,Urine Occasional /hpf; Nitrite,Urine Negative (Negative); PH, Urine 5.5 (5.0-8.0); Protein,Urine Trace (Negative); RBC,Urine 4 /hpf (0-5); Specific Gravity,Urine 1.032 (1.001-1.035); Squamous Epithelial Cell,Urine <1 /hpf (0-4); Urobilinogen,Urine <2.0 mg/dL (<2.0); WBC,Urine 1 /hpf (0-5)
--- NOTE | 2021-08-19 09:07 | US ---
EXAMINATION TYPE: US abdomen limited DATE OF EXAM: 08/19/2021 COMPARISON: US 02/06/11 CLINICAL HISTORY: Epigastric pain, elevated amylase/lipase. Epigastric pain x 12 hours. N/V x 10 hour s. Cholecystectomy in 2014. EXAM MEASUREMENTS: Liver Length: 13.1 cm Gallbladder Wall: Surgically absent cm CBD: 0.46 cm Right Kidney: 11.3 x 4.6 x 6.1 cm Pancreas: Limited due to overlying bowel gas Liver: wnl Gallbladder: Surgically absent Evidence for sonographic Renner's sign: No CBD: wnl Right Kidney: wnl IMPRESSION: Limited evaluation of the pancreas demonstrates no obvious abnormality.
[2021-08-19] MEDS ORDERED: HYDROmorphone 1 MG/ML 1 ML SYRINGE IVP PRN (09:58)
[2021-08-19] MEDS ORDERED: NALOXONE 0.4 MG/ML 1 ML VIAL IV PRN (09:58)
[2021-08-19] MEDS ORDERED: ONDANSETRON 4 MG/2 ML VIAL IVP PRN (09:58)
[2021-08-19] MEDS ORDERED: HYDROmorphone 0.5 MG/0.5 ML SYRINGE IVP PRN (09:58)
[2021-08-19] MEDS ORDERED: KETOROLAC 15 MG/ML 1 ML VIAL IVP PRN (09:59)
[2021-08-19] MEDS ORDERED: HYDROmorphone 0.5 MG/0.5 ML SYRINGE IVP STA (10:22)
[2021-08-19] MEDS: SODIUM CHLORIDE 0.9% 1,000 ML IV SCH (10:55)
--- NOTE | 2021-08-19 13:42 | P.HPIM ---
History of Present Illness H&P Date: 08/19/21 Bear Lindsey, is a 51-year-old male who presented to [facility] emergency room with a chief complaint of epigastric pain nausea and vomiting, patient states symptoms started on the day of presentation and were worsening. He was evaluated in the emergency room vital examination on presentation revealed a temperature of 98.3 pulse 71 respiration 18 blood pressure 133/82 pulse ox 95% on room air Laboratory data revealed a white blood count of 9.3 hemoglobin 15.9 platelet count 241 sodium 138 potassium 4.3 chloride 104 CO2 26 BUN 16 creatinine 1.0 and glucose was 149 amylase 133 lipase 793 Testing in the emergency room revealed ultrasound of the abdomen done in the emergency room revealed no obvious abnormality, patient is status post cholecystectomy, common bile duct is not dilated, pancreas was not clearly evaluated due to overlying bowel gas. Patient was admitted to medical floor for further evaluation and treatment Past medical history is significant for history of hypertension, history of hyperlipidemia, history of cholecystectomy in 2014, history of obstructive sleep apnea maintained on CPAP at home Past Medical History Past Medical History: Chest Pain / Angina Additional Past Medical History / Comment(s): rt foot fx at age 20 History of Any Multi-Drug Resistant Organisms: None Reported Past Surgical History: Cholecystectomy, Heart Catheterization With Stent, Tonsillectomy Additional Past Surgical History / Comment(s): heart stent x2,heart cath x2 Past Anesthesia/Blood Transfusion Reactions: No Reported Reaction Date of Last Stent Placement:: 04/18/2018, Past Psychological History: No Psychological Hx Reported Smoking Status: Current every day smoker Past Alcohol Use History: Rare Additional Past Alcohol Use History / Comment(s): started smoking at age 19,<1ppd Past Drug Use History: None Reported - Past Family History Mother Family Medical History: No Reported History Medications and Allergies Home Medications Medication Instructions Recorded Confirmed Type Aspirin [[place] Aspirin EC] 81 mg PO HS 04/24/18 08/19/21 History Atorvastatin [Lipitor] 80 mg PO HS #90 tab 04/25/18 08/19/21 Rx Metoprolol Tartrate [Lopressor] 25 mg PO HS 12/04/18 08/19/21 History Allergies Allergy/AdvReac Type Severity Reaction Status Date / Time No Known Allergies Allergy Verified 08/19/21 06:19 Physical Exam Vitals: Vital Signs Temp Pulse Pulse Resp BP BP Pulse Ox 08/19/21 10:37 98.1 F 56 L 14 114/63 96 08/19/21 08:00 98.1 F 60 18 106/65 93 L 08/19/21 06:16 98.3 F 71 18 133/82 95 Intake and Output 08/18/21 08/19/21 08/19/21 22:59 06:59 14:59 Other: Weight 115.666 kg 115.666 kg In general patient is alert and oriented x 3 in no distress HEENT head normocephalic and atraumatic Neck is supple no JVD no goiter no lymphadenopathy no carotid bruit Chest examination is clear to auscultation no crackles no wheezing Cardiac exam reveals regular heart sounds S1 and S2 no gallops no murmurs Abdomen is soft, with mild tenderness in the epigastric area no organomegaly with normal bowel sounds Extremity exam reveals no edema no cyanosis or clubbing Neurological examination reveals no gross focal deficits Results CBC & Chem 7: 08/19/21 07:07 08/19/21 07:07 Labs: Abnormal Lab Results - Last 24 Hours (Table) 08/19/21 08/19/21 Range/Units 07:07 07:07 Glucose 149 H (74-99) mg/dL Amylase 133 H (30-110) U/L Lipase 797 H (23-300) U/L Urine Protein Trace H (Negative) Urine Blood Small H (Negative) Ur Leukocyte Esterase Trace H (Negative) Urine Mucus Occasional H (None) /hpf Thrombosis Risk Factor Assmnt - Choose All That Apply Each Factor Represents 1 point: Age 41-60 years Thrombosis Risk Factor Assessment Total Risk Factor Score: 1 Thrombosis Risk Factor Assessment Level: Low Risk Assessment and Plan Plan: Acute pancreatitis, cause unclear no evidence of choledocholithiasis common bile duct is not dilated, no history of alcohol abuse. Epigastric pain, could be related to pancreatitis, however gastritis and peptic ulcer disease also in the differential at this time patient started on IV Protonix Underlying history of hypertension Underlying history of hyperlipidemia Underlying history of obstructive sleep apnea maintained on CPAP at home Previous history of cholecystectomy in 2014 At this time patient was started on IV Protonix Will monitor labs including liver enzymes amylase and lipase Home medications reviewed and reordered Patient may have family members bring his CPAP machine from home Will obtain MRI of the pancreas Will follow closely
[2021-08-19] MEDS: PANTOPRAZOLE 40 MG/10 ML VIAL IVP SCH ×2 (15:12→20:31)
--- NOTE | 2021-08-19 15:50 | MR ---
EXAMINATION TYPE: MR pancreas / mrcp wo/w con DATE OF EXAM: 08/19/2021 COMPARISON: None HISTORY: Acute pancreatitis CONTRAST: Standard multiplanar, multisequence MRI departmental protocol images were obtained without contrast a nd with 12 mL intravenous Gadavist gadolinium contrast. Liver shows no focal defect. No evidence of pleural effusion. Spleen is intact. There is no evidence of a pancreatic mass. Pancreatic duct is not dilated. No evidence of any pathologic fluid collection around the pancreas. The common bile duct appears normal. Intrahepatic bile ducts appear normal. Gallbladder is absent. There is no adrenal mass. Kidneys have normal size and contour. No hydronephrosis. The contrast images show normal enhancement of the kidneys. There is normal enhancement of the portal venous system. No pathologic enhancement. The stomach appears intact. There is no evidence of retrop eritoneal adenopathy. IMPRESSION: Normal MRCP exam. Normal pancreas. No evidence of pancreatitis.
[2021-08-19] MEDS ORDERED: ASPIRIN 81 MG PO SCH (21:00)
[2021-08-19] MEDS ORDERED: METOPROLOL TARTRATE 25 MG TAB PO SCH (21:00)
[2021-08-20] MEDS: SODIUM CHLORIDE 0.9% 1,000 ML IV SCH ×2 (00:46→12:40)
[2021-08-20 07:27] VITALS: BP 103/64; PULSE 60; RESP 18; TEMP 97.5
[2021-08-20] MEDS: PANTOPRAZOLE 40 MG/10 ML VIAL IVP SCH (08:00)
[2021-08-20] MEDS ORDERED: ENOXAPARIN 40 MG/0.4 ML SYRINGE SQ SCH (09:00)
--- NOTE | 2021-08-20 09:44 | P.PN ---
Subjective Progress Note Date: 08/20/21 Bear Lindsey, is a 51-year-old male who presented to [facility] emergency room with a chief complaint of epigastric pain nausea and vomiting, patient states symptoms started on the day of presentation and were worsening. He was evaluated in the emergency room vital examination on presentation revealed a temperature of 98.3 pulse 71 respiration 18 blood pressure 133/82 pulse ox 95% on room air Laboratory data revealed a white blood count of 9.3 hemoglobin 15.9 platelet count 241 sodium 138 potassium 4.3 chloride 104 CO2 26 BUN 16 creatinine 1.0 and glucose was 149 amylase 133 lipase 793 Testing in the emergency room revealed ultrasound of the abdomen done in the emergency room revealed no obvious abnormality, patient is status post cholecystectomy, common bile duct is not dilated, pancreas was not clearly evaluated due to overlying bowel gas. Patient was admitted to medical floor for further evaluation and treatment Past medical history is significant for history of hypertension, history of hyperlipidemia, history of cholecystectomy in 2014, history of obstructive sleep apnea maintained on CPAP at home On 08/20/2021 patient was seen and examined on the medical floor he is alert and oriented 3 in no apparent distress, he is still complaining of pain in the epigastric area and is complaining of constipation, last bowel movement on Saturday, otherwise he denies any complaints, there is no fever or chills no headache or dizziness no chest pain no shortness of breath no cough no nausea or vomiting no diarrhea no blood in the stools no burning with urination no liseth quency or urgency and no hematuria. MRI of the pancreas with MRCP did not reveal any acute abnormality. At this time will advance diet. Labs including amylase and lipase are still pending, will continue to monitor, possible discharge later today or tomorrow. Objective - Vital Signs Vital signs: Vital Signs Temp 97.5 F L 08/20/21 07:00 Pulse 60 08/20/21 07:00 Resp 18 08/20/21 07:00 BP 103/64 08/20/21 07:00 Pulse Ox 95 08/20/21 07:00 FiO2 Intake & Output 08/19/21 08/20/21 08/20/21 18:59 06:59 18:59 Output Total 0 Balance 0 Weight 115.666 kg Output: Emesis 0 Other: # Voids 1 # Bowel Movements 1 - Exam In general patient is alert and oriented x 3 in no distress HEENT head normocephalic and atraumatic Neck is supple no JVD no goiter no lymphadenopathy no carotid bruit Chest examination is clear to auscultation no crackles no wheezing Cardiac exam reveals regular heart sounds S1 and S2 no gallops no murmurs Abdomen is soft, with mild tenderness in the epigastric area no organomegaly with normal bowel sounds Extremity exam reveals no edema no cyanosis or clubbing Neurological examination reveals no gross focal deficits - Labs CBC & Chem 7: 08/19/21 07:07 08/19/21 07:07 Assessment and Plan Plan: Acute pancreatitis, cause unclear no evidence of choledocholithiasis common bile duct is not dilated, no history of alcohol abuse. Epigastric pain, could be related to pancreatitis, however gastritis and peptic ulcer disease also in the differential at this time patient started on IV Protonix Underlying history of hypertension Underlying history of hyperlipidemia Underlying history of obstructive sleep apnea maintained on CPAP at home Previous history of cholecystectomy in 2014 At this time patient was started on IV Protonix Will monitor labs including liver enzymes amylase and lipase Home medications reviewed and reordered Patient may have family members bring his CPAP machine from home Will obtain MRI of the pancreas Will follow closely
[2021-08-20 10:23] LABS: Basophils # (A) 0.08 X 10*3/uL (0.00-0.10); Basophils % (A) 1.2 %; HGB 13.3 g/dL (13.0-17.0); Immature Grans, Automated 0.3 %; Lymphocytes # (A) 1.85 X 10*3/uL (0.90-5.00); Lymphocytes % (A) 27.5 %; MCHC 32.4 g/dL (32.0-37.0); MCV 92.6 fL (80.0-97.0); Mean Platelet Volume 10.7 fL (9.5-12.2); Monocytes # (A) 0.87 X 10*3/uL (0.20-1.00); Monocytes % (A) 12.9 %; NRBC Per 100 WBC 0 /100 WBCS (0.0-0.0); Neutrophils % (A) 52.1 %; Platelet Count 212 X 10*3/uL (140-440); RBC 4.43 X 10*6/uL (4.40-5.60); RDW 12.4 % (11.5-14.5); WBC 6.72 X 10*3/uL (4.50-10.00)
[2021-08-20 11:03] LABS: Albumin 3.8 g/dL (3.8-4.9); Albumin/Globulin Ratio 2.11 (1.60-3.17); Anion Gap 9.1 mmol/L (10.00-18.00); BUN/Creat Ratio 12.6 Ratio (12.00-20.00); Blood Urea Nitrogen 12.6 mg/dL (9.0-27.0); Calcium 8.7 mg/dL (8.7-10.3); Carbon Dioxide 23.9 mmol/L (20.0-27.5); Globulin 1.8 g/dL (1.6-3.3); Potassium 4.3 mmol/L (3.5-5.5); Total Bilirubin 0.4 mg/dL (0.30-1.20); Total Protein 5.6 g/dL (6.2-8.2)
== END 2021-08-20 13:06 | disposition home or self-care (01) ==
LOC: EC 06:01 → 6NMEDSUR 10:00
PROVIDERS: ADMIT Internal Medicine; ATTEND Internal Medicine
DX: K85.90 Acute pancreatitis without necrosis or infection, unspecified (principal); R10.13 Epigastric pain; I10 Essential (primary) hypertension; K21.9 Gastro-esophageal reflux disease without esophagitis; E78.5 Hyperlipidemia, unspecified; G47.33 Obstructive sleep apnea (adult) (pediatric); K59.00 Constipation, unspecified; F17.210 Nicotine dependence, cigarettes, uncomplicated; Z79.82 Long term (current) use of aspirin; Z79.899 Other long term (current) drug therapy; Z90.49 Acquired absence of other specified parts of digestive tract; Z95.5 Presence of coronary angioplasty implant and graft
CPT/HCPCS: 99285; 96376 ×2; 96361 ×2; 96375 ×2; 96374; 36415; 93005; 80053 ×2; 82150 ×2; 83690 ×2; 84484; 85025 ×2; 81001; 76705; 74183; G0378 ×2; J2405; J2270; J1885; C9113 ×2; A9585

== ENCOUNTER 2021-11-17 09:01 | Day surgery (SDC) | payer BC ==
[2021-11-15 11:31] VITALS: BMI 34.5
[2021-11-17] MEDS ORDERED: LACTATED RINGERS 1,000 ML IV SCH (09:12)
[2021-11-17 09:18] VITALS: TEMP 96.6
[2021-11-17] MEDS ORDERED: LIDOCAINE 2% INJ 20 MG/ML (2 ML VIAL) ONE (10:18)
[2021-11-17] MEDS ORDERED: PROPOFOL 10 MG/ML 20 ML VIAL IV ONE (10:18)
--- NOTE | 2021-11-17 10:31 | P.PCN ---
Date of Procedure: 11/17/21 Procedure(s) Performed: BRIEF HISTORY: Patient is a 51-year-old, pleasant, white male scheduled for an upper endoscopy as a part of evaluation of recent episode of severe epigastric pain that happened about a month ago. It was mostly in the epigastric area lasting for about 16 hours and gradually resolved. He does complain of occasional heartburn. His been on Protonix 40 mg daily and has the symptoms and. PROCEDURE PERFORMED: Esophagogastroduodenoscopy. PREOPERATIVE DIAGNOSIS: Epigastric pain. IV sedation per anesthesia. PROCEDURE: After informed consent was obtained, the patient was brought into the endoscopy unit. IV sedation was administered by Anesthesia under continuous monitoring. Initially the Olympus GIF-140 video endoscope was inserted into the mouth. Esophagus intubated without any difficulty. It was gradually advanced into the stomach and duodenum and carefully examined. The bulb and the second part of the duodenum appeared normal. Biopsies were done from the duodenum to rule out celiac disease. The scope at this time was withdrawn to the stomach, adequately insufflated with air, and upon careful examination, mucosa of the antrum had patchy areas of erythema which was biopsied. There was small amount of solid food in the stomach suggestive of gastroparesis with no evidence of gastric outlet obstruction. The cause of the body, cardia and the fundus appeared normal. The scope was then withdrawn into the esophagus. The GE junction was located at 43 cm from the incisors. The esophagus appeared normal. There were no erosions or ulcerations seen by us his were done from the distal esophagus and the patient tolerated the procedure well. IMPRESSION: 1. Small amount of retained food in the stomach suggestive of gastroparesis with no evidence of gastric outlet obstruction. 2. Mild antral gastritis. RECOMMENDATIONS: The findings of this examination were discussed with the patient as well as his family. He was advised to follow with the biopsy results. Recommend small frequent meals. Continue Protonix daily and follow antireflux measures..
[2021-11-17 10:53] VITALS: PULSE 73; RESP 18
[2021-11-17 10:57] VITALS: BP 107/63
== END 2021-11-17 11:22 | disposition home or self-care (01) ==
LOC: ORWHC2ENDO 09:01
PROVIDERS: ATTEND Internal Medicine Gastroenterology
DX: K29.80 Duodenitis without bleeding (principal); K29.50 Unspecified chronic gastritis without bleeding; K20.90 Esophagitis, unspecified without bleeding; I25.10 Atherosclerotic heart disease of native coronary artery without angina pectoris; Z95.5 Presence of coronary angioplasty implant and graft; I25.2 Old myocardial infarction; F17.210 Nicotine dependence, cigarettes, uncomplicated; Z98.890 Other specified postprocedural states; Z90.49 Acquired absence of other specified parts of digestive tract; Z79.82 Long term (current) use of aspirin; Z79.899 Other long term (current) drug therapy
CPT/HCPCS: 88305; 88312; 88342; 43239; J2704; J2001

== ENCOUNTER → 2022-01-04 | Outpatient (CLI) | payer BC ==
[2022-01-04 17:17] LABS: Gliadin AB IgA, Deaminated NEGATIVE (NEGATIVE); Gliadin AB IgA, Unit <0.2 U/mL; Gliadin AB IgG, Deaminated NEGATIVE (NEGATIVE); Gliadin AB IgG, Unit <0.4 U/mL
== END | disposition home or self-care (01) ==
LOC: LABWHC1 07:18
PROVIDERS: ATTEND Internal Medicine Gastroenterology
DX: R10.10 Upper abdominal pain, unspecified (principal)
CPT/HCPCS: 36415; 83516

== ENCOUNTER → 2023-05-30 | Outpatient (CLI) | payer BC ==
--- NOTE | 2023-05-30 13:19 | XR ---
EXAMINATION TYPE: XR shoulder complete BILAT DATE OF EXAM: 05/30/2023 9:34 AM CLINICAL INDICATION:Male, 52 years old with history of M25.519 PAIN IN UNSPECIFIED SHOULDER; [facility] COMPARISON: None TECHNIQUE: XR shoulder complete BILAT; examined in AP, internally rotated and scapular Y projections. FINDINGS: No evidence of acute osseous pathology, joint dislocation, or soft tissue swelling. The remaining po rtions of the visualized chest are unremarkable. Minimal osteophyte formation of the glenoid and acro mion and distal clavicle bilaterally. IMPRESSION: 1. No acute osseous pathology. 2. Minimal bilateral shoulder osteoarthrosis changes.
== END | disposition home or self-care (01) ==
LOC: RADXRMAIN 09:18
PROVIDERS: ATTEND Internal Medicine
DX: M19.012 Primary osteoarthritis, left shoulder (principal); M19.011 Primary osteoarthritis, right shoulder